=== PATIENT | female | born 1990 | race Caucasian/White ===

== ENCOUNTER 2023-07-26 21:39 | Outpatient (REF) | payer SELFPAY ==
[2023-07-30 17:10] LABS: Age Gdln ACOG Testing Note (.); HPV Aptima Negative (Negative); IGP, Aptima HPV, rfx 16/18,45 Note (.)
== END 2023-07-26 21:40 | disposition home or self-care (01) ==
LOC: LAB 21:39
PROVIDERS: Visit Provider Obstetrics & Gynecology
DX: Z01.419 Encounter for gynecological examination (general) (routine) without abnormal findings (principal)
CPT/HCPCS: 87624; G0145

== ENCOUNTER 2024-06-28 11:08 | Outpatient (OUT) | payer BC, SELFPAY ==
[2024-06-29 05:12] LABS: HIV Ab/p24 Ag Screen Non Reactive (Non Reactive)
[2024-06-29 06:07] LABS: HBsAg Screen Negative (Negative)
[2024-06-29 11:10] LABS: Rapid Plasma Reagin, Quant Non Reactive titer (NonRea<1:1)
[2024-07-03 23:09] LABS: HSV-1 DNA Negative (Negative); HSV-2 DNA Negative (Negative)
== END 2024-06-28 11:09 | disposition home or self-care (01) ==
LOC: LAB 11:09
PROVIDERS: PCP Family Medicine; Visit Provider Nurse Practitioner Family
DX: Z20.2 Contact with and (suspected) exposure to infections with a predominantly sexual mode of transmission (principal)
CPT/HCPCS: 36415; 86592; 87340; 87389; 87529

== ENCOUNTER 2024-08-02 20:11 | Outpatient (REF) | payer BC, SELFPAY ==
--- OUTSIDE RECORDS SUMMARY | 2024-08-02 15:00 | XMS_ITS | Encounter Summary ---
Author Organization [facility] Address [address] [place] [address] Care Team Providers Care Early Childhood Education Coordinator Name Role Phone Rubina Varela MD Primary Care Provider [phone] Lizzeth Nicolas NP Unavailable [phone] Tiffany Brito-S Unavailable [phone] Reason for Visit * Reason Comments Well Women Visit Encounter Details Date Type Department Care Team (Late st Contact Info) Description 08/02/2024 3:00 PM EDT Office Visit [facility] [address] [place] [address] Maximino Chandler DO [address] [place], [id number] Well woman exam with routine gynecological exam Social History Tobacco Use Types Packs/Day Years Used Date Smoking Tobacco: Never Smokeless Tobacco: Never Alcohol Use Standard Drinks/Week Comments Yes 1 (1 standard drink = 0.6 oz pur e alcohol) caffeine: soda 2x a week Comments No Sex and Gender Information Value Date Recorded Sex Assigned at Female 09/20/2022 9:33 AM EDT Legal Sex Female 8:15 PM EDT Gender Identity Female 09/20/2022 9:33 AM EDT Sexual Orientation Straight 09/20/2022 9: 33 AM EDT documented as of this encounter Last Filed Vital Signs Vital Sign Reading Time Taken Comments Blood Pressure 114/68 08/02/2024 3:22 PM EDT Pulse - - Temperature - - Respiratory Rate - - Oxygen Saturation - - Inhaled Oxygen Concentration - - Weight 110 kg (242 lb 1.9 oz) 08/02/2024 3:22 PM EDT Height - - Body Mass Index 36.81 07/05/2024 7:59 AM EDT documented in this encounter Progress Notes * BECKI Jordan - 08/02/2024 3:00 PM EDT Reason for Appointment: Patient ID: Kandis Ambriz is a 34 y.o. female who presents for Well Women Visit Patient presents today for Annual Exam. MEDICATIONS Current Outpatient Medications Medication Instructions Kay 0.25-35 MG-MCG tablet 1 tablet, Oral, Daily sertraline (ZOLOFT) 100 mg, Oral, Daily ALLERGIES Allergies Allergen Reactions Azithromycin Other Reaction(s): Abdominal Pain, GI disturbance N/V, and diarrhea PROBLEMS Active Ambulatory Problems Diagnosis Date Noted Amenorrhea 07/05/2024 Anxiety disorder 07/05/2024 Current severe episode of major depressive disorder without psychotic features without prior episode ([facility]) 07/05/2024 Depressive disorder ([facility]) 07/05/2024 GBS bacteriuria 10/21/2020 Hyperinsulinemia 07/05/2024 Irregular periods 07/05/2024 Obesity (BMI 30.0-34.9) 07/05/2024 Stress at home 07/05/2024 Resolved Ambulatory Problems Diagnosis Date Noted No Resolved Ambulatory Problems Past Medical History: Diagnosis Date GERD (gastroesophageal reflux disease) IBS (irritable bowel syndrome) HISTORY PAST MEDICAL HISTORY SOCIAL HISTORY Past Medical History: Diagnosis Date GERD (gastroesophageal reflux disease) IBS (irritable bowel syndrome) Social History Tobacco Use Smoking status: Never Smokeless tobacco: Never Vaping Use Vaping status: Never Used Substance Use Topics Alcohol use: Yes Alcohol/week: 1.0 - 2.0 standard drink of alcohol Types: 1 - 2 Standard drinks or equivalent per week Comment: caffeine: soda 2x a week Drug use: Never FAMILY HISTORY Family History Problem Relation Name Age of Onset Hypertension Mother Yokasta Kidney failure Father Eleuterio Diabetes Father Eleuterio Hypertension Father Eleuterio Heart failure Father Eleuterio Hypertension Paternal Grandmother So Diabetes Paternal Grandmother So Drug abuse Neg Hx Alcohol abuse Neg Hx Mental illness Neg Hx SURGICAL HISTORY Past Surgical History: Procedure Laterality Date ABDOMINAL SURGERY February 2021 CT ANGIOGRAM HEART CORONARY 02/15/2021 CT ANGIOGRAM TAVR 02/15/2021 GALLBLADDER SURGERY 02/2021 MYRINGOTOMY REVIEW OF SYSTEMS Review of Systems: Review of Systems Constitutional: Negative. HENT: Negative. Eyes: Negative. Respiratory: Negative. Cardiovascular: Negative. Gastrointestinal: Negative. Genitourinary: Negative. Musculoskeletal: Negative. Skin: Negative. Neurological: Negative. All other systems reviewed and are negative. Hematological: Negative. Endocrine: Negative. Allergic/Immunologic: Negative. OBJECTIVE Objective: Physical Exam Constitutional: Appearance: Normal appearance. Genitourinary: Genitourinary Comments: Bilat nipple piercing Right Adnexa: not tender and no mass present. Left Adnexa: not tender and no mass present. No cervical discharge. Breasts: Breasts are soft. Right: Normal. Left: Normal. HENT: Head: Normocephalic. Nose: Nose normal. Mouth/Throat: Mouth: Mucous membranes are moist. Cardiovascular: Rate and Rhythm: Normal rate. Pulmonary: Effort: Pulmonary effort is normal. Abdominal: General: Bowel sounds are normal. Palpations: Abdomen is soft. Musculoskeletal: General: Normal range of motion. Cervical back: Normal range of motion. Neurological: General: No focal deficit present. Mental Status: She is alert. Skin: General: Skin is warm and dry. Psychiatric: Mood and Affect: Mood normal. Vitals and nursing note reviewed. Exam conducted with a educational administration teacher present. Vitals: Estimated body mass index is 36.81 kg/m?? as calculated from the following: Height as of 07/05/24: 5' 8 . Weight as of this encounter: 242 lb 1.9 oz. BP: 114/68 Patient's last menstrual period was 07/27/2024. ASSESSMENT & PLAN ICD-10-CM 1. Well woman exam with routine gynecological exam Z01.419 Pap Smear HPV DNA probe, amplified POCT urinalysis dipstick manually resulted Annual Exam: Patient presents today for an annual exam. Patient states she is doing well and has no complaints. Pap was obtained without difficulty. Orders Placed This Encounter Procedures HPV DNA probe, amplified POCT urinalysis dipstick manually resulted Follow Up: Patient is to return in one year for annual unless needed otherwise. Documented by BECKI Jordan on behalf of: Maximino Chandler DO documented in this encounter Plan of Treatment Upcoming Encounters Date Type Department Care Team (Late st Contact Info) Description 08/15/2024 4:00 PM EDT Social Work [facility] [address] [place] [address] Tiffany Brito [facility] [address] [place] [address] 09/12/2024 4:00 PM EDT Social Work [facility] [address] [place] [address] Tiffany Brito [facility] [address] [place] [address] 08/13/2025 4:00 PM EDT Office Visit [facility] [address] [place] [phone] Maximino Chandler, DO [address] [facility] [address] [place] [address] Scheduled Orders Name Type Priority Associated Diagnoses Orde r Schedule Pap Smear Pathology and Cytology Routine Well woman exam with routine gynecological exam Ordered: 08/02/2024 HPV DNA probe, amplified Microbiology Routine Well woman exam with routine gynecological exam Ordered: 08/02/2024 documented as of this encounter Procedures Procedure Name Priority Date/Time Associated Diagnosis Comments POCT URINALYSIS DIPSTICK Routine 08/02/2024 3:25 PM EDT Well woman exam with routine gynecological exam documented in this encounter Results * (ABNORMAL) POCT urinalysis dipstick manually resulted (08/02/2024 3:25 PM EDT) Color, UA Yellow Clarity, UA Clear Glucose, UA Negative Negative - 2000(110) ++++ mg/dL Bilirubin, UA Negative Negative - 4(70) +++ mg/dL Ketones, UA Negative Negative - 160(16) ++++ mg/dL Spec Grav, UA 1.015 1 - 1.03 Blood, UA Negative Negative - 50 Luther/mcL pH, UA 7.5 5 - 9 Protein, UA Negative Negative - 2000(20) ++++ mg/dL Urobilinogen, UA 0.2 0.2 - 12 mg/dL Leukocytes, UA Trace Negative - 500+++ Arabella/mcL Nitrite, UA Negative Negative - Positive Urine 08/02/2024 3:25 PM EDT us Maximino Geraldine DO POINT OF CARE TEST ENTER/EDIT OR DERABLES Final Result documented in this encounter Visit Diagnoses Diagnosis Well woman exam with routine gynecological exam Routine gynecological examination documented in this encounter Care Teams Early Childhood Education Coordinator Relationship Specialty Start Date End Date Rubina Varela MD [address] [place] [address] PCP - General Family Medicine 07/22/22 Lizzeth Nicolas NP [address] [place] [address] Nurse Practitioner Family Medicine 07/22/22 Tiffany Brito [facility] [address] [address] Advertising Sales Manager Behavioral Health 03/15/24 documented as of this encounter
--- OUTSIDE RECORDS SUMMARY | 2024-08-02 20:14 | XMS_ITS | Encounter Summary ---
Author Organization [facility] Address [address] [place] [address] Care Team Providers Care Pot Room Supervisor Name Role Phone Rubina Varela MD Primary Care Provider [phone] Lizzeth Nicolas NP Unavailable [phone] Tiffany Brito-S Unavailable Encounter Details Date Type Department Care Team (Late Contact Info) Description 08/02/2024 Bamboo flowsheet [facility] [address] [place] [phone] Maximino Chandler, DO [address] [place], [place] [id number] Social History Tobacco Use Types Packs/Day Years [...] AM EDT documented as of this encounter Plan of Treatment Upcoming Encounters Date Type Department Care Team (Late Contact Info) Description 08/15/2024 4:00 PM EDT Social Work [facility] [address] [facility] [address] [place] [phone] Tiffany Brito [facility] [address] [place] [address] 09/12/2024 4:00 PM EDT Social Work [facility] [address] [place] [address] Tiffany Brito [facility] [address] [place] [address] 08/13/2025 4:00 PM EDT Office Visit [facility] [address] [place] [phone] Maximino Chandler DO [address] [facility] [place] [address] documented as of this encounter Visit Diagnoses Not on filedocumented in this encounter Care Teams Pot Room Supervisor Relationship Specialty Start Date End Date Rubina Varela MD [address] [facility], [place] [id number] PCP - General Family Medicine 07/22/22 Lizzeth Nicolas NP [address] [facility] [place], [place] [id number] Nurse Practitioner Family Medicine 07/22/22 Tiffany Brito [facility] [address] [place] [address] Drill Foreman Behavioral Health 03/15/24 documented as of this encounter
--- OUTSIDE RECORDS SUMMARY | 2024-08-02 20:14 | XMS_ITS | Clinical Summary ---
Author Organization [facility] Address [address] [place] [address] Care Team Providers Care Forensic Social Worker Name Role Phone Rubina Varela MD Primary Care Provider [phone] Lizzeth Nicolas NP Unavailable [phone] Tiffany Brito-S Unavailable [phone] Allergies Active Allergy Reactions Criticality Noted Date Comments Azithromycin Medium 08/12/2018 Other Reaction(s): Abdominal Pain, GI disturbance N/V, and diarrhea Medications sertraline (Zoloft) 100 MG tabletIndicati ons:Follow-up encounter involving medication Take 1 tablet (100 mg) by mouth Daily 30 tablet 11 5 03/27/19 26 Active Kay 0.25-35 MG-MCG tabletIndicati ons: control counseling TAKE 1 TABLET BY MOUTH EVERY DAY 84 tablet 3 5 Active norgestimate-e thinyl estradiol (Ortho-Cyclen) 0.25-35 MG-MCG tabletIndicati ons: control counseling Take 1 tablet by mouth Daily 28 tablet 12 4 07/19/19 25 Discontinued metroNIDAZOLE (Flagyl) 500 MG tabletIndicati ons:BV (bacterial vaginosis) Take 1 tablet (500 mg) by mouth in the morning and 1 tablet (500 mg) before bedtime. Do all this for 7 days. Do not drink alcohol while taking this medication. 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 W/PCN in labor Encounters Date Type Department Care Team Description 08/02/2024 3:00 PM EDT Office Visit [facility] [address] [facility] [place] [address] Maximino Chandler, Well woman exam with routine gynecological exam 08/02/2024 Bamboo flowsheet [facility] [address] [facility] [address] Maximino Chandler DO 07/18/2024 4:00 PM EDT Social Work [facility] [address] [place] [address] Tiffany Brito LISW-S Anxiety 07/18/2024 Bamboo flowsheet [facility] [address] [place] [address] Tiffany Brito LISW-S 07/18/2024 Travel 07/16/2024 Refill [facility] OB [address] [place] [phone] Maximino Chandler DO control counseling 07/05/2024 8:10 AM EDT Office Visit [facility] [address] [place] [phone] Odilia Good MD Chronic tonsillitis (Primary Dx) 07/05/2024 Bamboo flowsheet [facility] [address] [place] [phone] Odilia Good MD 07/05/2024 Travel 06/30/2024 Results Follow-Up [facility] [address] [place] [address] Peytonlincoln Sierra, BANANA LOADER 06/29/20[address] [facility] [address] [place] [address] Peytonlincoln Sierra, BANANA LOADER 06/28/2024 10:00 AM EDT Office Visit [facility] [address] [place] [address] Jackie French NP Exposure to STD; Vaginal discharge; Sexually transmitted disease exposure 06/28/2024 Clinisync Result Encounter [facility] External Department Unsolicited Provider, Generic External Data 06/28/2024 Bamboo flowsheet [facility] [address] [place] [address] Jackie French NP 06/21/[address] [facility] [address] [place] [address] Maximino Chandler DO 06/14/2024 4:00 PM EDT Social Work [facility] [address] [place] [address] Tiffany Brito LISW-S Anxiety 06/14/2024 Bamboo flowsheet [facility] [address] [place] [address] Tiffany Brito LISW-S 06/14/2024 Travel 06/13/2024 Bamboo flowsheet [facility] [address] [place] [phone] Odilia Good MD 06/13/2024 Travel 05/29/2024 4:00 PM EDT Office Visit [facility] [address] [facility] [address] Sully Neumann, LOUANN Sore throat (Primary Dx); Strep throat 05/29/2024 Bamboo flowsheet [facility] [address] [place] [facility] [place] [address] Sully Neumann NP 05/29/2024 Travel 05/26/2024 Telephone [facility] [address] [place] [phone] Monika Souza MA 05/25/2024 2:00 PM EDT Office Visit [facility] [address] [place] [address] Delia Chapman PA Vaginal discharge; STD exposure 05/25/2024 External Result Encounter [facility] External Department Unsolicited Delia Chapman PA 05/25/2024 Bamboo flowsheet [facility] [address] [place] [phone] Delia Chapman PA 05/17/2024 4:00 PM EDT Social Work [facility] [address] [place] [address] Tiffany Brito LISW-S Anxiety 05/17/2024 Bamboo flowsheet [facility] [address] [place] [address] iTffany Brtio LISW-S 05/17/2024 Travel 05/08/[address] [facility] [address] [place] [phone] Maximino Chandler DO from Last 3 Months Family History Medical History Relation Name Comments Diabetes Father Eleuterio Heart failure Father Eleuterio Hypertension Father Eleuterio Kidney failure Father Eleuterio Hypertension Mother Yokasta Diabetes Paternal Grandmother Granny Hypertension Paternal Grandmother Granny Alcohol abuse Neg Hx Drug abuse Neg Hx Mental illness Neg Hx Relation Name Status Comments Father Eleuterio Alive Mother Yokasta Alive Paternal Grandmother Granny Social History Tobacco Use Types Packs/Day Years Used Date Smoking Tobacco: Never Smokeless Tobacco: Never Tobacco Cessation:Counseling Given: Not Answered Alcohol Use Standard Drinks/Week Comments Yes 1 (1 standard drink = 0.6 oz pur e alcohol) caffeine: soda 2x a week Comments No Sex and Gender Information Value Date Recorded Sex Assigned at Female 09/20/2022 9:33 AM EDT Legal Sex Female 8:15 PM EDT Gender Identity Female 09/20/2022 9:33 AM EDT Sexual Orientation Straight 09/20/2022 9: 33 AM EDT Last Filed Vital Signs Vital Sign Reading Time Taken Comments Blood Pressure 114/68 08/02/2024 3:22 PM EDT Pulse 82 07/05/2024 7:59 AM EDT Temperature 37.8 C (100.1 F) 05/29/2024 3:57 PM EDT Respiratory Rate - - Oxygen Saturation 96% 05/29/2024 3:57 PM EDT Inhaled Oxygen Concentration - - Weight 110 kg (242 lb 1.9 oz) 08/02/2024 3:22 PM EDT Height 172.7 cm (5' 8 ) 07/05/2024 7:59 AM EDT Body Mass Index 36.81 07/05/2024 7:59 AM EDT Plan of Treatment Upcoming Encounters Date Type Department Care Team (Late st Contact Info) Description 08/15/2024 4:00 PM EDT Social Work [facility] [address] [place] [address] Tiffany Brito LISW-S [address] [place] [address] 09/12/2024 4:00 PM EDT Social Work [facility] [address] [place] [address] Tiffany Brito LISW-S [address] [place] [address] 08/13/2025 4:00 PM EDT Office Visit [facility] OB [address] [facility] [place] [address] [place] [phone] Maximino Chandler, [address] [facility] [place] [address] Health Maintenance Due Date Last Done Comments HPV/Cotest 05/12/2021 Influenza Vaccine (Season Ended) 2024 01/14/2022, 12/04/2020, 12/22/2018 Cervical Cancer Screening 07/25/2026 Pap Smear 07/25/2026 07/26/2023, 07/20/2022 Procedures Procedure Name Priority Date/Time Associated Diagnosis Comments POCT URINALYSIS DIPSTICK Routine 08/02/2024 3:25 PM EDT Well woman exam with routine gynecological exam [facility] HERPES SIMPLEX VIRUS 1/2 DNA PCR Routine 06/28/2024 11:17 AM EDT HBSAG SCREEN Routine 06/28/2024 11:17 AM EDT RAPID PLASMA REAGIN, QUANT Routine 06/28/2024 11:17 AM EDT HIV AB/P24 AG WITH REFLEX Routine 06/28/2024 11:17 AM EDT RECURRENT VAGINITIS (HTRX) Routine 06/28/2024 10:45 AM EDT POCT URINALYSIS DIPSTICK Routine 06/28/2024 10:13 AM EDT Exposure to STD Vaginal discharge POCT , URINE Routine 06/28/2024 10:13 AM EDT Exposure to STD Vaginal discharge POCT RAPID STREP A Routine 05/29/2024 4: 12 PM EDT Sore throat STATUS COVID-19/FLU Routine 05/29/2024 4 :11 PM EDT Sore throat RECURRENT VAGINITIS (HTRX) Routine 05/25/2024 4:08 PM EDT PAP SMEAR Routine 07/26/2023 12:00 AM EDT from Last 3 Months or Most Recently Relevant to Health Maintenance Results * (ABNORMAL) POCT urinalysis dipstick manually resulted (08/02/2024 3:25 PM EDT) Only the most recent of2 resultswithin the time period is included. [facility] Color, UA Yellow Clarity, UA Clear Glucose, [...] - Positive Urine 08/02/2024 3:25 PM EDT Maximino Chandler DO POINT OF CARE TEST ENTER/EDIT OR DERABLES Final Result * HBSAG SCREEN (06/28/2024 11:17 AM EDT) [facility] HBSAG SCREEN Negative Negative [facility] Comment: Performed at: [facility] [address] [id number] Forensic Social Worker: Sen Moe PhD, Phone: [phone] 06/28/2024 11:1 7 AM EDT 06/28/2024 11:17 AM EDT Narrative MAVERICKISYNC - 06/29/2024 11:10 AM EDT Jackie French NP LAB BLOOD ORDERABLES Final Re sult [facility] * RAPID PLASMA REAGIN, QUANT (06/28/2024 11:17 AM EDT) [facility] RAPID PLASMA REAGIN, QUANT Non Reactive NonRea<1: 1 titer [facility] Comment: Please Note: This test does not meet current guidelines for screening and diagnosis of syphilis. This test is intended for following treatment response in patients being treated for syphilis infection. To screen for syphilis infection, a reflex cascade that includes both RPR and a treponema-specific assay should be utilized, such as Treponema pallidum (Syphilis) Screening [place] (917019) or Rapid Plasma Reagin (RPR) Test With Reflex to Quantitative RPR and Confirmatory Treponema pallidum Antibodies (375052). Performed at: [address] [id number] Forensic Social Worker: Sen Moe PhD, Phone: [phone] 06/28/2024 11:1 7 AM EDT 06/28/2024 11:17 AM EDT Narrative CLINISYMI - 06/29/2024 11:10 AM EDT Jackie French NP LAB BLOOD ORDERABLES Final Re sult Performing Organization Address [facility] Co de Phone Number [facility] * HIV AB/P24 AG WITH REFLEX (06/28/2024 11:17 AM EDT) Pathologist [facility] HIV AB/P24 AG SCREEN Non Reactive Non Reactive [facility] Comment: HIV-1/HIV-2 antibodies and HIV-1 p24 antigen were NOT detected. There is no laboratory evidence of HIV infection. HIV Negative Performed at: [address] [id number] Forensic Social Worker: Sen Moe PhD, Phone: [phone] 06/28/2024 11:1 7 AM EDT 06/28/2024 11:17 AM EDT Narrative CLINISYMI - 06/29/2024 5:12 AM EDT Jackie French NP LAB BLOOD ORDERABLES Final Re sult Performing Organization Address City/[facility] Co de Phone Number [facility] * TB HERPES SIMPLEX VIRUS 1/2 DNA PCR (06/28/2024 11:17 AM EDT) Pathologist [facility] [place] HSV-1 DNA Negative Negative [facility] HSV-2 DNA Negative Negative [facility] Comment: This test was developed and its performance characteristics determined by [employer]. It has not been cleared or approved by the U.S. Food and Drug Administration. The FDA has determined that such clearance or approval is not necessary. This test is used for clinical purposes. It should not be regarded as investigational or research. Performed at: [address] [id number] Forensic Social Worker: Shazia Patricia MD, Phone: [phone] 06/28/2024 11:1 7 AM EDT 06/28/2024 11:17 AM EDT Narrative CLINISYNC - 07/03/2024 11:09 PM EDT Jackie French NP CLINISYNC Final Result [facility]NC [facility] * (ABNORMAL) RECURRENT VAGINITIS (HTRX) (06/28/2024 10:45 AM EDT) Only the most recent of2 resultswithin the time period is included. ATOPOBIUM VAGINAE 0.000 19.961 - 24.689 ppm 06/29/2024 8:03 AM EDT [facility] ATOPOBIUM VAGINAE Not Detected 19.961 - 24.689 ppm 06/29/2024 8:03 AM EDT [facility] BVAB 2,3 (BACTERIAL VAGINOSIS ASSOCIATED BACTERIA 2, 3); MOBILUNCUS SPP 26.791(A) 19.961 - 24.689 ppm 06/29/2024 8:03 AM EDT [facility] BVAB 2,3 (BACTERIAL VAGINOSIS ASSOCIATED BACTERIA 2, 3); MOBILUNCUS SPP Detected(A) 19.961 - 24.689 ppm 06/29/2024 8:03 AM EDT [facility] MARINA ALBICANS, PARAPSILOSIS, TROPICALIS 0.000 19.961 - 30.770 ppm 06/29/2024 8:03 AM EDT [facility] MARINA ALBICANS, PARAPSILOSIS, TROPICALIS Not Detected 19.961 - 30.770 ppm 06/29/2024 8:03 AM EDT [facility] MARINA GLABRATA 0.000 23.000 - 32.138 ppm 06/29/2024 8:03 AM EDT [facility] MARINA GLABRATA Not Detected 23.000 - 32.138 ppm 06/29/2024 8:03 AM EDT [facility] MARINA KRUSEI 0.000 23.000 - 32.271 ppm 06/29/2024 8:03 AM EDT [facility] MARINA KRUSEI Not Detected 23.000 - 32.271 ppm 06/29/2024 8:03 AM EDT [facility] CHLAMYDIA TRACHOMATIS 0.000 23.000 - 31.467 ppm 06/29/2024 8:03 AM EDT [facility] CHLAMYDIA TRACHOMATIS Not Detected 23.000 - 31.467 ppm 06/29/2024 8:03 AM EDT [facility] GARDNERELLA VAGINALIS 0.000 19.961 - 24.689 ppm 06/29/2024 8:03 AM EDT [facility] GARDNERELLA VAGINALIS Not Detected 19.961 - 24.689 ppm 06/29/2024 8:03 AM EDT [facility] HERPES SIMPLEX VIRUS 1 0.000 23.000 - 32.355 ppm 06/29/2024 8:03 AM EDT [facility] HERPES SIMPLEX VIRUS 1 Not Detected 23.000 - 32.355 ppm 06/29/2024 8:03 AM EDT [facility] HERPES SIMPLEX VIRUS 2 0.000 23.000 - 31.433 ppm 06/29/2024 8:03 AM EDT [facility] HERPES SIMPLEX VIRUS 2 Not Detected 23.000 - 31.433 ppm 06/29/2024 8:03 AM EDT [facility] MEGASPHAERA (TYPES 1, 2) 0.000 19.961 - 24.689 ppm 06/29/2024 8:03 AM EDT [facility] MEGASPHAERA (TYPES 1, 2) Not Detected 19.961 - 24.689 ppm 06/29/2024 8:03 AM EDT [facility] NEISSERIA GONORRHOEAE 0.000 23.000 - 32.117 ppm 06/29/2024 8:03 AM EDT [facility] NEISSERIA GONORRHOEAE Not Detected 23.000 - 32.117 ppm 06/29/2024 8:03 AM EDT [facility] TRICHOMONAS VAGINALIS 0.000 23.000 - 32.119 ppm 06/29/2024 8:03 AM EDT [facility] TRICHOMONAS VAGINALIS Not Detected 23.000 - 32.119 ppm 06/29/2024 8:03 AM EDT [facility] MYCOPLASMA GENITALIUM 0.000 19.961 - 24.689 ppm 06/29/2024 8:03 AM EDT [facility] MYCOPLASMA GENITALIUM Not Detected 19.961 - 24.689 ppm 06/29/2024 8:03 AM EDT [facility] Tissue 06/28/2024 10:4 5 AM EDT 06/29/2024 1:54 AM EDT Maximino Chandler DO LAB BLOOD ORDERABLES Final Resul t [facility] [address] [place] [address] * POCT , urine manually resulted (06/28/2024 10:13 AM EDT) Preg Test, Ur Negative Negative Urine 06/28/2024 10:1 3 AM EDT Jackie French HOUSEKEEPER POINT OF CARE TEST ENTER/EDIT ORDERABLES Final Result * (ABNORMAL) POCT rapid strep A manually resulted (05/29/2024 4:12 PM EDT) Rapid Strep A Screen Positive( A) Negative, None Detected Swab 05/29/2024 4:12 PM EDT Sully Neumann HOUSEKEEPER POINT OF CARE TEST ENTE R/EDIT ORDERABLES Final Result * STATUS COVID-19/FLU (05/29/2024 4:11 PM EDT) FLU A negative FLU B negative SARS COV 2 RNA negative Nasopharyngeal 05/29/2024 4: 11 PM EDT Sully Neumann HOUSEKEEPER POINT OF CARE TEST ENTE R/EDIT ORDERABLES Final Result * Pap Smear (07/26/2023 12:00 AM EDT) Swab Cervical swab / Unknown us Maximino Chandler DO LAB CYTOLOGY ORDERABLES Final Re sult EXTERNAL LAB from Last 3 Months or Most Recently Relevant to Health Maintenance Insurance [facility] Care Teams Forensic Social Worker Relationship Specialty Start Date End Date Rubina Varela MD [address] [facility] [place], [place] [phone] PCP - General Family Medicine 07/22/22 Lizzeth Nicolas NP [address] [facility] [place], [place] [phone] Nurse Practitioner Family Medicine 07/22/22 Tiffany Brito LISW-S [address] [place] [address] Professor Of Archaeology Behavioral Health 03/15/24
--- OUTSIDE RECORDS SUMMARY | 2024-08-02 20:14 | XMS_ITS | Encounter Summary ---
Author Organization [facility] Address [address] [place] [address] Care Team Providers Care Blanket Inspector Name Role Phone Rubina Varela MD Primary Care Provider [phone] Lizzeth Nicolas NP Unavailable [phone] Tiffany Brito-S Unavailable [phone] Encounter Details Date Type Department Care Team (Late st Contact Info) Description 06/30/2024 Results Follow-Up [facility] OB [address] [facility] [place] [address] Sierra Ashby LPN [address] [place] [address] Social History Tobacco Use Types Packs/Day Years [...] AM EDT documented as of this encounter Miscellaneous Notes * Result Encounter Note - Sierra Ashby LPN - 06/30/2024 10:04 AM EDT Pt notified and treated. documented in this encounter Plan of Treatment Upcoming Encounters Date Type Department Care Team (Late st Contact Info) Description 08/15/2024 4:00 PM EDT Social Work [facility] [address] [place] [phone] Tiffany Brito LISW-S [address] [place] [address] 09/12/2024 4:00 PM EDT Social Work [facility] [address] [place] [address] Tiffany Brito LISW-S [address] [place] [address] 08/13/2025 4:00 PM EDT Office Visit [facility] OB [address] [place] [phone] Maximino Chandler, DO [address] [place] [address] documented as of this encounter Visit Diagnoses Not on filedocumented in this encounter Care Teams Blanket Inspector Relationship Specialty Start Date End Date Rubina Varela MD [address] [facility] [place] [address] PCP - General Family Medicine 07/22/22 Lizzeth Nicolas NP [address] [facility] [place], [place] [phone] Nurse Practitioner Family Medicine 07/22/22 Tiffany Brito LISW-S [address] [place] [address] Conditioning Coach Behavioral Health 03/15/24 documented as of this encounter
--- OUTSIDE RECORDS SUMMARY | 2024-08-02 20:14 | XMS_ITS | Encounter Summary ---
Author Organization [facility] Address [address] [place] [address] Care Team Providers Care Assisted Living Nursing Director Name Role Phone Rubina Varela MD Primary Care Provider Lizzeth Nicolas NP Unavailable [phone] Tiffany Brito Unavailable [phone] Encounter Details Date Type Department Care Team (Late Contact Info) Description 10/07/2022 Abstract [facility] [address] [facility] [address] [place] [address] Tiffany Brito LISW-S [address] [facility] [address] [place] [address] Social History Tobacco Use Types Packs/Day Years Used Date Smoking Tobacco: Never Tobacco Cessation:Counseling Given: Not Answered Alcohol Use Standard Drinks/Week Comments Yes 1 (1 standard drink = 0.6 oz pur e alcohol) caffeine: soda 2x a week Comments Unknown Sex and Gender Information Value Date Recorded Sex Assigned at Female 09/20/2022 9:33 AM EDT Legal Sex Female 8:15 PM EDT Gender Identity Female 09/20/2022 9:33 AM EDT Sexual Orientation Straight 09/20/2022 9: 33 AM EDT documented as of this encounter Plan of Treatment Upcoming Encounters Date Type Department Care Team ([facility] Contact Info) Description 08/15/2024 4:00 PM EDT Social Work [facility] [address] [facility] [address] [place] [phone] Tiffany Brito LISW-S [address] [place] [address] 09/12/2024 4:00 PM EDT Social Work [facility] [address] [place] [address] Tiffany Brito LISW-S [address] [place] [address] 08/13/2025 4:00 PM EDT Office Visit [facility] OB [address] [place] [address] Maximino Chandler DO [address] [place] [address] documented as of this encounter Visit Diagnoses Not on filedocumented in this encounter Care Teams Assisted Living Nursing Director Relationship Specialty Start Date End Date Rubina Varela MD [address] [place], [place] [phone] PCP - General Family Medicine 07/22/22 Lizzeth Nicolas NP [address] [facility], [place] [phone] Nurse Practitioner Family Medicine 07/22/22 Tiffany Brito LISW-S [address] [place] [address] Airplane Engineer Behavioral Health 03/15/24 documented as of this encounter
--- OUTSIDE RECORDS SUMMARY | 2024-08-02 20:15 | XMS_ITS | CCD ---
Author Organization [facility] Care Team Providers Care High Reach Operator Name Role Phone Leyda Hendrickson Unavailable ALEJANDRA CABRERA Primary Care Unavailable GERALDINE ., DR VERDUGO Attending Unavailable GERALDINE ., DR VERDUGO Consulting Unavailable GERALDINE ., DR VERDUGO Admitting Unavailable Nichole GOODE, Rubina Primary Care Provider Maria Isabel COMMUNITY SERVICE REPRESENTATIVE, Lizzeth Unavailable Tiffany Witt Unavailable Mariluz Emery APRN Attending Provider Mariluz Emery Admitting Unavailable Mariluz Emery Attending Unavailable NO FAMILY, PHYSICIAN Primary Care Unavailable DidTiffany Malin Unavailable [phone] TIFFANY HAYDEN Attending Unavailable DIDION, TIFFANY Attending Unavailable DIDION, TIFFANY Attending Unavailable DELIA LUI Attending Unavailable ALFONSO NEUMANN Attending Unavailab le TIFFANY HAYDEN Attending Unavailable KARTIK CHANDLER Attending Unavailable DIDION, TIFFANY Attending Unavailable DIDION, TIFFANY Attending Unavailable DIDION, TIFFANY Attending Unavailable DIDION, TIFFANY Attending Unavailable JACKIE FRENCH Attending Unavailable ODILIA DURBIN Attending Unavailable ALEJANDRA NEUMANNRICIA A Referring Unavailab le LENAIONTIFFANY Attending Unavailable DIDION, TIFFANY Attending Unavailable DIDION, TIFFANY Attending Unavailable DIDION, TIFFANY Attending Unavailable DIDION, TIFFANY Attending Unavailable DIDION, TIFFANY Attending Unavailable DIDION, TIFFANY Attending Unavailable Allergies Allergy Classification Reported Allergen(s) Allergy Type Date of Onset Reaction(s) Facility (20 sources) Azithromycin Drug Allergy 9 abdominal pain, nausea/diarrrhe a [facility] Work Phone: (1 source) Azithromycin Drug Allergy 3 [facility] Repository (1 source) Azithromycin Drug Allergy 5 [facility] Repository Medications Current Medications Medication Drug Class(es) Dates Sig (Normalized) Sig (Original) amoxicillin 500 mg oral capsule (5 sources) Penicillin-class Antibacterial Start: 05-29-2024 End: 06-08-2024 take 1 capsule by mouth in the morning amoxicillin (Amoxil) 500 MG capsule Indications: Strep throat Take 1 capsule (500 mg) by mouth in the morning and 1 capsule (500 mg) before bedtime. Do all this for 10 days. 20 capsule 05/29/2024 06/08/2024 Active Start: 12-08-2023 End: 05-03-2024 take 1 capsule by mouth twice daily Amoxicillin 500 mg capsule Discontinued 500 MG PO Twice daily 20 December 07, 2023 11:00pm May 03, 2024 6:31pm benzonatate 200 mg oral capsule (3 sources) Non-narcotic Antitussive Start: 12-08-2023 Benzonatate 200 mg capsule Active MG PO December 07, 2023 11:00pm Start: 12-08-2023 Benzonatate Ac tive MG PO December 08, 2023 12:00am doxycycline hyclate 100 mg oral capsule (2 sources) Tetracycline-class Drug Start: 05-03-2024 take 1 capsule by mouth twice daily Doxycycline Hyclate 100 mg capsule Active 100 MG PO Twice daily 14 7 May 03, 2024 12:00am ethinyl estradiol 0.035 mg / norgestimate 0.25 mg oral tablet (20 sources) Progestin, Estrogen Start: 12-08-2023 take 1 tablet by mouth once daily Norgestimate-Eth inyl Estradiol (Estarylla) 0.25-35 mg-mcg tablet Active 1 TAB PO Daily December 07, 2023 11:00pm Start: 12-08-2023 take 1 tablet by ernestina th once daily Norgestimate-Ethinyl Estradiol (Estarylla) 0.25-35 mg-mcg tablet Active 1 TAB PO Daily December 08, 2023 12:00am Start: 07-26-2023 End: 07-25-2024 take 1 tablet by mouth once daily Kay 0.25-35 MG-MCG tablet Indications: control counseling TAKE 1 TABLET BY MOUTH EVERY DAY 84 tablet 3 07/18/2024 Active Start: 04-12-2023 End: 08-02-2023 norgestimate-ethinyl estradi ol (Ortho-Cyclen) 0.25-35 MG-MCG tablet Indications: control counseling Take 1 tablet by mouth in the morning. 28 tablet 3 04/12/2023 08/02/2023 Active metroNIDAZOLE 500 mg oral tablet (3 sources) Nitroimidazole Antimicrobial Start: 06-29-2024 End: 07-06-2024 take 1 tablet by mouth in the morning metroNIDAZOLE (Flagyl) 500 MG tablet Indications: BV (bacterial vaginosis) Take 1 tablet (500 mg) by mouth in the morning and 1 tablet (500 mg) before bedtime. Do all this for 7 days. Do not drink alcohol while taking this medication. 14 tablet 06/29/2024 07/06/2024 Active 28-0.8 MG (1 source) Start: 01-05-2021 take 1 tablet by mouth once daily 28-0.8 MG 1 tablet Orally Once a day for 30 day(s) Dec, Active sertraline 100 mg oral tablet (20 sources) Serotonin Reuptake Inhibitor Start: 02-23-2023 End: 03-27-2025 take 1 tablet by mouth once daily sertraline (Zoloft) 100 MG tablet Indications: Follow-up encounter involving medication Take 1 tablet (100 mg) by mouth Daily 30 tablet 11 03/27/2024 03/27/2025 Active Completed/Discontinued Medications Medication Drug Class(es) Dates Sig (Normalized) Sig (Original) [id number] 200 actuat albuterol 0.09 mg/actuat metered dose inhaler (3 sources) beta2-Adrenergic Agonist Start: 12-08-2023 End: 05-03-2024 Albuterol Sulfate 90 mcg/actuation HFA aerosol inhaler Discontinued INHALATION December 07, 2023 11:00pm May 03, 2024 6:31pm aspirin 81 mg oral tablet (1 source) Platelet Aggregation Inhibitor, Nonsteroidal Anti-inflammatory Drug RA Aspirin EC 81 MG Oral for 30 Not-Taking Problems Active Problems Problem Classification Problem Date Documented Date Episodic/Chronic Acute and chronic tonsillitis (2 sources) Chronic tonsillitis; Translations: [Chronic tonsillitis] 07-05-2024 Chronic Adjustment disorders (7 sources) Family tension; Translations: [Reaction to severe stress, unspecified] Onset: 07-05-2024 07-05-2024 Chronic Anxiety disorders (20 sources) Anxiety; Translations: [Anxiety disorder, unspecified] Onset: 07-05-2024 12-08-2023 Chronic Immunizations and screening for infectious disease (11 sources) Contact with and (suspected) exposure to other viral communicable diseases; Translations: [At risk of sexually transmitted infection ] Onset: 01-05-2021 Resolved: 01-05-2021 Episodic Menstrual disorders (14 sources) Amenorrhea; Translations: [Amenorrhea, unspecified] Onset: 07-05-2024 07-05-2024 Chronic Mood disorders (17 sources) Depressive disorder; Translations: [Depression] Onset: 07-05-2024 12-08-2023 Chronic Other endocrine disorders (7 sources) Hyperinsulinism; Translations: [Other hypoglycemia] Onset: 07-05-2024 07-05-2024 Chronic Other female genital disorders (4 sources) Vaginal discharge; Translations: [Other specified noninflammatory disorders of vagina] 05-25-2024 Episodic Other nutritional; endocrine; and metabolic disorders (7 sources) Obese class I; Translations: [Obesity (BMI 30.0-34.9)] Onset: 07-05-2024 07-05-2024 Chronic Other upper respiratory infections (9 sources) Acute pharyngitis, unspecified; Translations: [Acute pharyngitis] 12-08-2023 Episodic Residual codes; unclassified (1 source) High risk heterosexual behavior; Translations: [High risk heterosexual behavior] Onset: 05-03-2024 Episodic Past or Other Problems Problem Classification Problem Date Documented Da te Episodic/Chronic Genitourinary symptoms and ill-defined conditions (7 sources) Bacteriuria; Translations: [Bacteriuria] Onset: 10-21-2020 07-05-2024 Episodic Viral infection (1 source) COVID-19 Onset: 01-05-2021 Resolved: 01-05-2021 Results Test Name Value Interpretation Reference Range Facility Urinalysis macro (dipstick) panel (U)on 08-02-2024 Bilirubin, UA Negative Negative - 4(70) +++ mg/dL [facility] Blood, UA Negative Negative - 50 Luther/mcL [facility] Healthcare Clarity, UA Clear [facility] Color, UA Yellow [facility] Glucose, UA Negative Negative - 1999(110) ++++ mg/dL [facility] Interpretation and review of laboratory results Abnormal [facility] Ketones, UA Negative Negative - 160(16) ++++ mg/dL [facility] Leukocytes, UA Trace Negative - 500+++ Arabella/mcL [facility] Nitrite, UA Negative Negative - Positive [facility] pH, UA 7.5 5 - 9 [facility] e Protein, UA Negative Negative - 1999(20) ++++ mg/dL [facility] Spec Grav, UA 1.015 1 - 1.03 [facility] Urobilinogen, UA 0.2 0.2 - 12 mg/dL [facility] HIV AB/P24 AG WITH REFLEXon 06-29-2024 HIV AB/P24 AG SCREEN Non-Reactive Non Reactive [facility] Comment on above: HIV-1/HIV-2 antibodi es and HIV-1 p24 antigen were NOT detected. There is no laboratory evidence of HIV infection. HIV Negative Performed at: - [facility] [id number] Compilation Clerk: Sen Moe PhD, Phone: [phone] [facility] HCG ( test) Ql (U)o n 06-28-2024 Interpretation and review of laboratory results Normal [facility] Preg Test, Ur Negative Negative [facility] Urinalysis macro (dipstick) panel (U)on 06-28-2024 Bilirubin, UA Negative Negative - 4(70) +++ mg/dL [facility] Blood, UA Negative Negative - 50 Luther/mcL [facility] Healthcare Clarity, UA Clear [facility] Color, UA Yellow [facility] Glucose, UA Negative Negative - 1999(110) ++++ mg/dL [facility] Interpretation and review of laboratory results Abnormal [facility] Ketones, UA Negative Negative - 160(16) ++++ mg/dL [facility] Leukocytes, UA Trace Negative - 500+++ Arabella/mcL [facility] Nitrite, UA Negative Negative - Positive [facility] pH, UA 6.5 5 - 9 [facility] Protein, UA Negative Negative - 1999(20) ++++ mg/dL [facility] Spec Grav, UA 1.025 1 - 1.03 [facility] care Urobilinogen, UA 0.2 0.2 - 12 mg/dL [facility] Laboratory - Microbiology an d Antimicrobial susceptibilityon 05-29-2024 S. pyogenes Ag Ql (Throat) Positive Abnormal Negative, None Detected [facility] SARS-CoV-2 (COVID-19) RNA PITO+probe Ql (Unsp spec) Negative [facility] No Panel Informationon 05-29 Interpretation and review of laboratory results Abnormal [facility] FLU A Negative [facility] FLU B Negative [facility] e Vaginitis Plus (VG+)on 05-03 Atopobium Vaginae Low - 0 Normal . The [facility] Comment on above: Result Comment: This test was developed and its performance characteristics determined by [facility]. It has not been cleared or approved by the Food and Drug Administration. Performed By: #### V AGINITIS+ #### [facility] , BVAB2 Low - 0 Normal . The [facility] Comment on above: Result Comment: This test was developed and its performance characteristics determined by [facility]. It has not been cleared or approved by the Food and Drug Administration. Performed By: #### V AGINITIS+ #### [facility] , Cookie Albicans, PITO Negative Normal Negative [facility] Comment on above: Result Comment: This test was developed and its performance characteristics determined by [facility]. It has not been cleared or approved by the Food and Drug Administration. Performed By: #### V AGINITIS+ #### [facility] , Cookie Glabrata, PITO Negative Normal Negative [facility] Comment on above: Result Comment: This test was developed and its performance characteristics determined by [facility]. It has not been cleared or approved by the Food and Drug Administration. PERFORMED BY: [address] [place] [address] PATHOLOGIST CHILD WELFARE SPECIALIST CONSTANCE ROMAN M.D. Performed By: #### V AGINITIS+ #### [facility] , Chlamydia Trachomotis, PITO Positive Critically abnormal Negative [facility] Comment on above: Performed By: #### V AGINITIS+ #### [facility] , Megasphaera Low - 0 Normal . [facility] Comment on above: Result Comment: This test was developed and its performance characteristics determined by [facility]. It has not been cleared or approved by the Food and Drug Administration. Calculate total score by adding the 3 individual bacterial vaginosis (BV) marker scores together. Total score is interpreted as follows: Total score 0-1: Indicates the absence of BV. Total score 2: Indeterminate for BV. Additional clinical data should be evaluated to establish a diagnosis. Total score 3-6: Indicates the presence of BV. Performed By: #### V AGINITIS+ #### [facility] , Neisseria Gonorrhoeae, PITO Negative Normal Negative [facility] Comment on above: Result Comment: Perf ormed at: =G - [facility] [address] [id number] Compilation Clerk: Estee Jimenez MD, Phone: [phone] Performed By: #### V AGINITIS+ #### [facility] , Tric Vag PITO Negative Normal Negative [facility] Comment on above: Performed By: #### V AGINITIS+ #### [facility] , No Panel InformationOrdered By: Mariluz Emery on 12-08-2023 Quick Strep (POC) [facility] Cytology Cervical or vaginal smear or scraping studyOrdered By: Charu Elizalde on 07-26-2023 [facility] Liqueo e COVID Quick Testingon 2020 Result Positive [employer] Other Vital Signs Date Time Vital Sign Value Performing Clinician Facility 08-02-2024 15:22-0400 Body mass index (BMI) [Ratio] 36.81 kg/m2 KartikTripnary DO Work Phone: [facility] 08-02-2024 15:22-0400 Body weight 109.83 kg Kartik Geraldine DO Work Phone: [facility] 08-02-2024 15:22-0400 Diastolic blood pressure 68 mm[Hg] Kartik Geraldine DO Work Phone: [facility] 08-02-2024 15:22-0400 Systolic blood pressure 114 mm[Hg] Kartik Geraldine DO Work Phone: [facility] 07-05-2024 07:59-0400 Body height 172.7 cm Odilia Durbin MD Work Phone: [facility] 07-05-2024 07:59-0400 Body mass index (BMI) [Ratio] 36.04 kg/m2 Odilia Durbin MD Work Phone: [facility] 07-05-2024 07:59-0400 Body weight 107.5 kg Odilia Durbin MD Work Phone: [facility] 07-05-2024 07:59-0400 Diastolic blood pressure 76 mm[Hg] Odilia Durbin MD Work Phone: [facility] 07-05-2024 07:59-0400 Heart rate 82 /min Odilia Durbin MD Work Phone: [facility] 07-05-2024 07:59-0400 Systolic blood pressure 107 mm[Hg] Odilia Durbin MD Work Phone: [facility] 06-28-2024 10:07-0400 Body mass index (BMI) [Ratio] 35.48 kg/m2 Jackie French COMMUNITY SERVICE REPRESENTATIVE Work Phone: [facility] 06-28-2024 10:07-0400 Body weight 107.41 kg Jackie French COMMUNITY SERVICE REPRESENTATIVE Work Phone: [facility] 06-28-2024 10:07-0400 Diastolic blood pressure 70 mm[Hg] Jackie French COMMUNITY SERVICE REPRESENTATIVE Work Phone: [facility] 06-28-2024 10:07-0400 Systolic blood pressure 110 mm[Hg] Jackie French COMMUNITY SERVICE REPRESENTATIVE Work Phone: [facility] 05-29-2024 15:57-0400 Body height 174 cm Alfonso Neumann COMMUNITY SERVICE REPRESENTATIVE Work Phone: [facility] 05-29-2024 15:57-0400 Body mass index (BMI) [Ratio] 35.6 kg/m2 Alfonso Neumann COMMUNITY SERVICE REPRESENTATIVE Work Phone: [facility] 05-29-2024 15:57-0400 Body temperature 100.09 [degF] Alfonso Neumann COMMUNITY SERVICE REPRESENTATIVE Work Phone: [facility] 05-29-2024 15:57-0400 Body weight 107.78 kg Alfonso Neumann COMMUNITY SERVICE REPRESENTATIVE Work Phone: [facility] 05-29-2024 15:57-0400 Diastolic blood pressure 80 mm[Hg] Alfonso Neumann COMMUNITY SERVICE REPRESENTATIVE Work Phone: [facility] 05-29-2024 15:57-0400 Heart rate 103 /min Alfonso Neumann COMMUNITY SERVICE REPRESENTATIVE Work Phone: [facility] 05-29-2024 15:57-0400 SaO2% (BldA) [Mass fraction] 96 % Alfonso Neumann COMMUNITY SERVICE REPRESENTATIVE Work Phone: [facility] 05-29-2024 15:57-0400 Systolic blood pressure 124 mm[Hg] Alfonso Neumann COMMUNITY SERVICE REPRESENTATIVE Work Phone: [facility] 05-25-2024 14:13-0400 Body mass index (BMI) [Ratio] 36.08 kg/m2 Delia CONNELL Work Phone: [facility] 05-25-2024 14:13-0400 Body weight 109.23 kg Delia CONNELL Work Phone: [facility] 05-25-2024 14:13-0400 Diastolic blood pressure 74 mm[Hg] Delia CONNELL Work Phone: [facility] 05-25-2024 14:13-0400 Systolic blood pressure 118 mm[Hg] Delia CONNELL Work Phone: [facility] 05-03-2024 18:31-0500 Body height 177.8 cm [facility] 05-03-2024 18:31-0500 Body mass index (BMI) [Ratio] 34 kg/m2 [facility] 05-03-2024 18:31-0500 Body temperature 97.8 [degF] [facility] 05-03-2024 18:31-0500 Body weight 107.72 kg [facility] 05-03-2024 18:31-0500 Diastolic blood pressure 80 mm[Hg] [facility] 05-03-2024 18:31-0500 Heart rate 75 /min [facility] 05-03-2024 18:31-0500 Respiratory rate 17 /min [facility] 05-03-2024 18:31-0500 SaO2% (BldA) [Mass fraction] 98 % [facility] 05-03-2024 18:31-0500 Systolic blood pressure 148 mm[Hg] [facility] 12-08-2023 11:45-0400 Body height 172.72 cm [facility] 12-08-2023 11:45-0400 Body mass index (BMI) [Ratio] 35.9 kg/m2 [facility] 12-08-2023 11:45-0400 Body temperature 97.8 [degF] [facility] 12-08-2023 11:45-0400 Body weight 107.04 kg [facility] 12-08-2023 11:45-0400 Diastolic blood pressure 74 mm[Hg] [facility] 12-08-2023 11:45-0400 Heart rate 89 /min [facility] 12-08-2023 11:45-0400 Respiratory rate 18 /min [facility] 12-08-2023 11:45-0400 SaO2% (BldA) [Mass fraction] 96 % [facility] 12-08-2023 11:45-0400 Systolic blood pressure 109 mm[Hg] [facility] 01-05-2021 12:00-0400 Body height 172.72 cm Leyda Hendrickson Other [facility] Other 01-05-2021 12:00-0400 Body mass index (BMI) [Ratio] 33.45 kg/m2 Leyda Hendrickson Other [employer] [facility] Other 01-05-2021 12:00-0400 Body temperature 98.8 [degF] Leyda Hendrickson Other [employer] [facility] Other 01-05-2021 12:00-0400 Body weight 99.79 kg Leyda Hendrickson Other [employer] Other 01-05-2021 12:00-0400 Respiratory rate 18 /min Leyda Hendrickson Other [employer] Other 01-05-2021 12:00-0400 SaO2% (BldA) [Mass fraction] 96 % Leyda Hendrickson Other [employer] Other Encounters Encounter Date Encounter Type Care Provider Facility Start: 08-02-2024 End: 08-02-2024 Patient encounter procedure Kartik Geraldine DO Work Phone: [facility] Work Phone: Start: 08-02-2024 End: 08-02-2024 Periodic preventive med est patient 18-39 yrs Kartik Geraldine DO Work Phone: [facility] Comment on above: Well woman exam with routine gynecological exam Start: 08-02-2024 End: 08-02-2024 Bamboo flowsheet Kartik Geraldine DO Work Phone: [facility] Start: 08-02-2024 End: 08-02-2024 Bamboo flowsheet Kartik Geraldine DO Work Phone: [facility] Start: 07-18-2024 End: 07-18-2024 ambulatory TIFFANY JACKELYN Not Available Comment on above: Anxiety Start: 07-18-2024 End: 07-18-2024 Bamboo flowsheet Tiffany Hayden DRUG ABUSE TREATMENT SPECIALIST-S Work Phone: [facility] Start: 07-18-2024 End: 07-18-2024 Bamboo flowsheet Tiffany Hayden DRUG ABUSE TREATMENT SPECIALIST-S Work Phone: [facility] Start: 07-05-2024 End: 07-05-2024 Bamboo flowsheet Odilia Durbin MD Work Phone: [facility] Start: 07-05-2024 End: 07-05-2024 Bamboo flowsheet Odilia Durbin MD Work Phone: [facility] Start: 07-05-2024 End: 07-05-2024 Office outpatient new 30 minutes Odilia Durbin MD Work Phone: [facility] Comment on above: Chronic tonsillitis (Primary Dx) Start: 07-05-2024 End: 07-05-2024 ambulatory ODILIA DURBIN Not Available Start: 06-28-2024 End: 06-28-2024 Bamboo flowsheet Jackie French COMMUNITY SERVICE REPRESENTATIVE Work Phone: [facility] Start: 06-28-2024 End: 06-29-2024 Bamboo flowsheet Jackie French COMMUNITY SERVICE REPRESENTATIVE Work Phone: [facility] Start: 06-28-2024 End: 06-29-2024 [facility] Result Encounter Generic External Data Provider [facility] External Department Unsolicited Start: 06-28-2024 End: 06-28-2024 Office outpatient visit 15 minutes Jackie French COMMUNITY SERVICE REPRESENTATIVE Work Phone: [facility] Comment on above: Exposure to STD; Vaginal discharge; Sexually transmitted disease exposure Start: 06-28-2024 End: 06-28-2024 ambulatory JACKIE GABE Not Available Start: 06-14-2024 End: 06-14-2024 Social Work Tiffany Hayden DRUG ABUSE TREATMENT SPECIALIST-S Work Phone: [facility] Comment on above: Anxiety Start: 06-14-2024 End: 06-14-2024 Bamboo flowsheet Tiffany Overton Didion DRUG ABUSE TREATMENT SPECIALIST-S Work Phone: [facility] Start: 06-14-2024 End: 06-14-2024 Bamboo flowsheet Tiffany Overton Didion DRUG ABUSE TREATMENT SPECIALIST-S Work Phone: [facility] Start: 06-13-2024 End: 06-13-2024 Bamboo flowsheet Odilia Durbin MD Work Phone: [facility] Start: 06-13-2024 End: 06-13-2024 Bamboo flowsheet Odilia Durbin MD Work Phone: [facility] Start: 05-29-2024 End: 05-29-2024 Office outpatient visit 15 minutes Alfonso A Hackenburg COMMUNITY SERVICE REPRESENTATIVE Work Phone: [facility] Comment on above: Sore throat (Primary Dx); Strep throat Start: 05-29-2024 End: 05-29-2024 ambulatory ALFONSO A HACKENBURG Not Available Start: 05-29-2024 End: 05-29-2024 Bamboo flowsheet Alfonso A Hackenburg COMMUNITY SERVICE REPRESENTATIVE Work Phone: [facility] Start: 05-29-2024 End: 05-29-2024 Bamboo flowsheet Alfonso A Hackenburg COMMUNITY SERVICE REPRESENTATIVE Work Phone: [facility] Start: 05-25-2024 End: 05-25-2024 ambulatory DELIA LUI Not Available Start: 05-25-2024 End: 05-25-2024 Bamboo flowsheet Delia CONNELL Work Phone: [facility] Start: 05-25-2024 End: 05-25-2024 Bamboo flowsheet Delia CONNELL Work Phone: [facility] Start: 05-25-2024 End: 05-25-2024 Office outpatient visit 15 minutes Delia CONNELL Work Phone: [facility] Comment on above: Vaginal discharge; STD exposure Start: 05-17-2024 End: 05-17-2024 Social Work Tiffany C Didion DRUG ABUSE TREATMENT SPECIALIST-S Work Phone: [facility] Comment on above: Anxiety Start: 05-17-2024 End: 05-17-2024 Bamboo flowsheet Tiffany Brooklynn Didion DRUG ABUSE TREATMENT SPECIALIST-S Work Phone: [facility] Start: 05-17-2024 End: 05-17-2024 Bamboo flowsheet Tiffany C Didion DRUG ABUSE TREATMENT SPECIALIST-S Work Phone: [facility] Start: 05-03-2024 End: 05-03-2024 Departed Referred Mariluz Emery APRN Work Phone: [facility] [place] Work Phone: Start: 05-03-2024 End: 05-03-2024 ambulatory Mariluz Emery [facility] Work Phone: Start: 05-03-2024 End: 05-03-2024 Patient encounter procedure [facility] [place] Work Phone: Start: 04-25-2024 End: 04-25-2024 Social Work Tiffany Overton Didion DRUG ABUSE TREATMENT SPECIALIST-S Work Phone: [facility] Comment on above: Anxiety Start: 04-25-2024 End: 04-25-2024 Bamboo flowsheet Tiffany C Didion DRUG ABUSE TREATMENT SPECIALIST-S Work Phone: [facility] Start: 04-25-2024 End: 04-25-2024 Bamboo flowsheet Tiffany C Didion DRUG ABUSE TREATMENT SPECIALIST-S Work Phone: [facility] Start: 04-05-2024 End: 04-05-2024 Social Work Tiffany Overton Didion DRUG ABUSE TREATMENT SPECIALIST-S Work Phone: [facility] Comment on above: Anxiety Start: 04-05-2024 End: 04-05-2024 Bamboo flowsheet Tiffany C Didion DRUG ABUSE TREATMENT SPECIALIST-S Work Phone: [facility] Start: 04-05-2024 End: 04-05-2024 Bamboo flowsheet Tiffany C Didion DRUG ABUSE TREATMENT SPECIALIST-S Work Phone: [facility] Start: 03-14-2024 End: 03-14-2024 Social Work Tiffany C Didion DRUG ABUSE TREATMENT SPECIALIST-S Work Phone: [facility] Comment on above: Anxiety Start: 03-14-2024 End: 03-14-2024 Bamboo flowsheet Tiffany C Didion DRUG ABUSE TREATMENT SPECIALIST-S Work Phone: [facility] Start: 03-14-2024 End: 03-14-2024 Bamboo flowsheet Tiffany C Didion DRUG ABUSE TREATMENT SPECIALIST-S Work Phone: [facility] Start: 02-23-2024 End: 02-23-2024 Social Work Tiffany C Didion DRUG ABUSE TREATMENT SPECIALIST-S Work Phone: [facility] Comment on above: Anxiety Start: 02-23-2024 End: 02-23-2024 Bamboo flowsheet Tiffany C Didion DRUG ABUSE TREATMENT SPECIALIST-S Work Phone: [facility] Start: 02-23-2024 End: 02-23-2024 Bamboo flowsheet Tiffany C Didion DRUG ABUSE TREATMENT SPECIALIST-S Work Phone: [facility] Start: 01-27-2024 End: 01-27-2024 Social Work Tiffany C Didion DRUG ABUSE TREATMENT SPECIALIST-S Work Phone: [facility] Comment on above: Anxiety Start: 01-27-2024 End: 01-27-2024 Bamboo flowsheet Tiffany C Didion DRUG ABUSE TREATMENT SPECIALIST-S Work Phone: [facility] Start: 01-27-2024 End: 01-27-2024 Bamboo flowsheet Tiffany C Didion DRUG ABUSE TREATMENT SPECIALIST-S Work Phone: [facility] Start: 01-12-2024 End: 01-12-2024 Social Work Tiffany C Didion DRUG ABUSE TREATMENT SPECIALIST-S Work Phone: [facility] Comment on above: Anxiety Start: 01-12-2024 End: 01-12-2024 Bamboo flowsheet Tiffany C Didion DRUG ABUSE TREATMENT SPECIALIST-S Work Phone: [facility] Start: 01-12-2024 End: 01-12-2024 Bamboo flowsheet Tiffany C Didion DRUG ABUSE TREATMENT SPECIALIST-S Work Phone: [facility] Start: 12-15-2023 End: 12-15-2023 Social Work Tiffany Brooklynn Didion DRUG ABUSE TREATMENT SPECIALIST-S Work Phone: [facility] Comment on above: Anxiety Start: 12-15-2023 End: 12-15-2023 Bamboo flowsheet Tiffany Overton Didion DRUG ABUSE TREATMENT SPECIALIST-S Work Phone: [facility] Start: 12-15-2023 End: 12-15-2023 Bamboo flowsheet Tiffany C Didion DRUG ABUSE TREATMENT SPECIALIST-S Work Phone: [facility] Start: 12-08-2023 End: 12-08-2023 ambulatory [facility] Work Phone: Start: 12-08-2023 End: 12-08-2023 Patient encounter procedure [facility] [place] Work Phone: Start: 12-06-2023 End: 12-06-2023 Social Work Tiffany Overton Didion DRUG ABUSE TREATMENT SPECIALIST-S Work Phone: [facility] Comment on above: Anxiety Start: 12-06-2023 End: 12-06-2023 Bamboo flowsheet Tiffany C Didion DRUG ABUSE TREATMENT SPECIALIST-S Work Phone: [facility] Start: 12-06-2023 End: 12-06-2023 Bamboo flowsheet Tiffany C Didion DRUG ABUSE TREATMENT SPECIALIST-S Work Phone: [facility] Start: 12-01-2023 End: 12-01-2023 Social Work Tiffany C Didion DRUG ABUSE TREATMENT SPECIALIST-S Work Phone: [facility] Comment on above: Anxiety Start: 12-01-2023 End: 12-01-2023 Bamboo flowsheet Tiffany C Didion DRUG ABUSE TREATMENT SPECIALIST-S Work Phone: [facility] Start: 12-01-2023 End: 12-01-2023 Bamboo flowsheet Tiffany C Didion DRUG ABUSE TREATMENT SPECIALIST-S Work Phone: [facility] Start: 11-03-2023 End: 11-03-2023 Social Work Tiffany C Didion DRUG ABUSE TREATMENT SPECIALIST-S Work Phone: [facility] Comment on above: Anxiety Start: 11-03-2023 End: 11-03-2023 Bamboo flowsheet Tiffany C Didion DRUG ABUSE TREATMENT SPECIALIST-S Work Phone: [facility] Start: 11-03-2023 End: 11-03-2023 Bamboo flowsheet Tiffany C Didion DRUG ABUSE TREATMENT SPECIALIST-S Work Phone: [facility] Start: 10-06-2023 End: 10-06-2023 ambulatory TIFFANY DIDION Not Available Start: 08-30-2023 End: 08-30-2023 ambulatory TIFFANY DIDION Not Available Start: 07-26-2023 End: 07-26-2023 ambulatory KARTIK GERALDINE Not Available Start: 04-22-2023 Telephone encounter Tiffany Saavedra DRUG ABUSE TREATMENT SPECIALIST-S Work Phone: [facility] Start: 04-21-2023 Bamboo flowsheet Tiffany Overton Didio n DRUG ABUSE TREATMENT SPECIALIST-S Work Phone: [facility] Start: 04-21-2023 Bamboo flowsheet Tiffany C Didio n DRUG ABUSE TREATMENT SPECIALIST-S Work Phone: [facility] Start: 07-20-2022 End: 07-20-2022 ambulatory ALEJANDRA NOVA . Facility: Start: 01-05-2021 (URG) Urgent Care Visit Leyda tolliver [facility] [place] Start: 01-05-2021 End: 01-05-2021 ambulatory Leyda Madhavi Other [facility] [facility] Other Procedures Date Procedure Procedure Detail Performing Clinician Start: 08-02-2024 Urnls dip stick/tabl et rgnt non-auto w/o micrscp Kartik Geraldine DO Work Phone: Start: 06-28-2024 HIV AB/P24 AG WITH REFLEX Jackie French COMMUNITY SERVICE REPRESENTATIVE Work Phone: Start: 06-28-2024 Urnls dip stick/tabl et rgnt non-auto w/o micrscp Jackie French COMMUNITY SERVICE REPRESENTATIVE Work Phone: Start: 05-29-2024 Iaadiadoo streptococ cus group a Alfonso A [facility] COMMUNITY SERVICE REPRESENTATIVE Work Phone: Start: 05-29-2024 STATUS COVID-19/FLU Pat ricia A [facility] COMMUNITY SERVICE REPRESENTATIVE Work Phone: Start: 12-08-2023 Quick Strep (POC) Start: 07-26-2023 Microscopic observat ion [Identifier] in Cervix by Cyto stain Tiffanyantionette Hayden DRUG ABUSE TREATMENT SPECIALIST-S Work Phone: Start: 07-26-2023 Cytp cerv/vag auto t hin layer prep mnl screen Kartik Geraldine DO Work Phone: Start: 07-20-2022 Microscopic observat ion [Identifier] in Cervix by Cyto stain Tiffany Distech Controlsion DRUG ABUSE TREATMENT SPECIALIST-S Work Phone: Plan of Treatment Date Care Activity Detail Author Start: 07-25-2028 Screening for malign ant neoplasm of cervix [facility] Start: 07-21-2027 Screening for malign ant neoplasm of cervix [facility] Start: 07-25-2026 Screening for malign ant neoplasm of cervix [facility] Start: 11-06-2024 Influenza vaccination Influenz a Vaccine (Season Ended) [facility] Start: 09-12-2024 End: 09-12-2024 Social Work 09/12/2024 4:00 PM EDT Social Work [facility] [address] [place] [address] Tiffany Hayden LISW-S [address] [place] [address] [facility] Start: 08-15-2024 End: 08-15-2024 Social Work 08/15/2024 4:00 PM EDT Social Work [facility] [address] [place] [address] Tiffany Hayden LISW-S [address] [place] [address] [facility] Start: 08-02-2024 End: 08-02-2024 Patient encounter procedure [facility] Comment on above: Arrived Start: 07-18-2024 End: 07-18-2024 Social Work [facility] Comment on above: Arrived Start: 07-05-2024 End: 07-05-2024 Patient encounter procedure [facility] Comment on above: Arrived Start: 06-28-2024 End: 06-28-2024 Patient encounter procedure 06/28/2024 10:00 AM EDT Office Visit [facility] [address] [place] [address] Jackie French, COMMUNITY SERVICE REPRESENTATIVE [address] [place] [address] Arrived [facility] Comment on above: Arrived Start: 06-27-2024 End: 06-27-2024 Patient encounter procedure 06/27/2024 8:10 AM EDT Office Visit [facility] [address] [facility] [address] [place] [address] Odilia Durbin MD [address] [place] [address] [facility] Start: 06-14-2024 End: 06-14-2024 Social Work 06/14/2024 4:00 PM EDT Social Work [facility] [address] [place] [phone] Tiffany Hayden LISW-S [address] [place] [address] [facility] Start: 06-13-2024 End: 06-13-2024 Patient encounter procedure 06/13/2024 10:30 AM EDT Office Visit [facility] [address] [place] [address] Odilia Durbin MD [address] [place] [address] Strep throat [facility] Comment on above: Strep throat Start: 05-29-2024 End: 05-29-2024 Patient encounter procedure [facility] Comment on above: Arrived Start: 05-25-2024 End: 05-25-2024 Patient encounter procedure 05/25/2024 2:00 PM EDT Office Visit [facility] [address] [place] [id number] Delia Lui PA [address] [place] [address] [facility] Start: 05-17-2024 End: 05-17-2024 Social Work 05/17/2024 4:00 PM EDT Social Work [facility] [address] [place] [address] Tiffany Hayden LISW-S [address] [place] [address] [facility] Start: 05-03-2024 [facility] Start: 04-25-2024 End: 04-25-2024 Social Work [facility] Comment on above: Arrived Start: 04-05-2024 End: 04-05-2024 Social Work [facility] Comment on above: Arrived Start: 03-14-2024 End: 03-14-2024 Social Work [facility] Comment on above: Arrived Start: 02-23-2024 End: 02-23-2024 Social Work 02/23/2024 4:00 PM EST Social Work [facility] [address] [place] [address] Tiffany Hayden, DRUG ABUSE TREATMENT SPECIALIST-S [address] [place] [address] [facility] Start: 02-16-2024 End: 02-16-2024 Social Work 02/16/2024 4:00 PM EST Social Work [facility] [address] [place] [address] Tiffany Hayden, DRUG ABUSE TREATMENT SPECIALIST-S [address] [place] [address] [facility] Start: 01-27-2024 End: 01-27-2024 Social Work 01/27/2024 4:00 PM EST Social Work [facility] [address] [place] [address] Tiffany Hayden, DRUG ABUSE TREATMENT SPECIALIST-S [address] [place] [address] [facility] Start: 01-12-2024 End: 01-12-2024 Social Work [facility] Comment on above: Arrived Start: 12-15-2023 End: 12-15-2023 Social Work [facility] Comment on above: Arrived Start: 12-06-2023 End: 12-06-2023 Social Work 12/06/2023 4:00 PM EDT Social Work [facility] [address] [place] [address] Tiffany Hayden, DRUG ABUSE TREATMENT SPECIALIST-S [address] [place] [address] [facility] Start: 12-01-2023 End: 12-01-2023 Social Work 12/01/2023 4:00 PM EDT Social Work [facility] [address] [place] [address] Tiffany Hayden, DRUG ABUSE TREATMENT SPECIALIST-S [address] [place] [address] [facility] Start: 11-07-2023 Influenza vaccination Influ[facility] Vacc ine (#1) [facility] Start: 07-26-2023 End: 07-26-2023 Patient encounter procedure 07/26/2023 3:00 PM EDT Office Visit [facility] [address] [place] [id number] Kartik Chandler, DO [address] [place] [address] [facility] Start: 05-25-2023 End: 05-25-2023 Social Work 05/25/2023 3:00 PM EDT Social Work [facility] [address] [place] [address] Tiffany Hayden, DRUG ABUSE TREATMENT SPECIALIST-S [address] [place] [address] [facility] Start: 04-21-2023 End: 04-21-2023 Social Work 04/21/2023 2:00 PM EST Social Work [facility] [address] [place] [phone] Tiffany Hayden, DRUG ABUSE TREATMENT SPECIALIST-S [address] [place] [address] [facility]rived [facility] Comment on above: Arrived Start: 11-06-2022 Influenza vaccination Influenza Vacc ine (#1) [facility] Start: 05-12-2021 Screening for malign ant neoplasm of cervix [facility] Start: 05-12-2012 Screening for malign ant neoplasm of cervix Pap Smear [facility] Atopobium vaginae DN A [Presence] in Vaginal fluid by PITO with probe detection [facility] Bacterial vaginosis associated bacterium 2 DNA [Presence] in Vaginal fluid by PITO with probe detection [facility] CHLAMYDIA TRACHOMATI S (GENITO/STI) CHLAMYDIA TRACHOMATIS (GENITO/STI) Lab Routine STD exposure Ordered: 05/25/2024 [facility] Comment on above: Ordered: 05/25/2024 CHLAMYDIA TRACHOMATI S (GENITO/STI) CHLAMYDIA TRACHOMATIS (GENITO/STI) Lab Routine Exposure to STD Vaginal discharge Ordered: 06/28/2024 [facility] Comment on above: Ordered: 06/28/2024 Cytology Cervical or vaginal smear or scraping study Pap Smear Pathology and Cytology Routine Well woman exam with routine gynecological exam Ordered: 08/02/2024 [facility] Work Phone: Comment on above: Ordered: 08/02/2024 Hepatitis B virus surface Ag [Presence] in Serum or Plasma by Immunoassay Hepatitis B surface antigen Lab Routine Exposure to STD Sexually transmitted disease exposure Ordered: 06/28/2024 [facility] Comment on above: Ordered: 06/28/2024 HIV-1/HIV-2 antigen/antibody combination immunoassay HIV-1 and HIV-2 antibodies Lab Routine Exposure to STD Sexually transmitted disease exposure Ordered: 06/28/2024 [facility] Comment on above: Ordered: 06/28/2024 HSV nonspecific, IgM HSV nonspec ific, IgM Lab Routine Exposure to STD Sexually transmitted disease exposure Ordered: 06/28/2024 [facility] Comment on above: Ordered: 06/28/2024 Human papilloma viru s DNA [Presence] in Unspecified specimen by Probe with amplification HPV DNA probe, amplified Microbiology Routine Well woman exam with routine gynecological exam Ordered: 08/02/2024 [facility] Comment on above: Ordered: 08/02/2024 Megasphaera sp type 1 DNA [Presence] in Vaginal fluid by PITO with probe detection [facility] Neisseria gonorrhoea e DNA [Presence] in Unspecified specimen by PITO with probe detection Neisseria gonorrhea DNA probe, direct Lab Routine STD exposure Ordered: 05/25/2024 [facility] Comment on above: Ordered: 05/25/2024 Neisseria gonorrhoea e DNA [Presence] in Unspecified specimen by PITO with probe detection Neisseria gonorrhea DNA probe, direct Lab Routine Exposure to STD Vaginal discharge Ordered: 06/28/2024 [facility] Comment on above: Ordered: 06/28/2024 Reagin Ab [Presence] in Serum by RPR RPR Lab Routine Exposure to STD Sexually transmitted disease exposure Ordered: 06/28/2024 [facility] Comment on above: Ordered: 06/28/2024 SURESWAB(R) ADVANCED VAGINITIS PLUS, TMA SURESWAB(R) ADVANCED VAGINITIS PLUS, TMA Pathology and Cytology Routine Vaginal discharge Ordered: 05/25/2024 [facility] Work Phone: Comment on above: Ordered: 05/25/2024 SURESWAB(R) ADVANCED VAGINITIS PLUS, TMA SURESWAB(R) ADVANCED VAGINITIS PLUS, TMA Pathology and Cytology Routine Exposure to STD Vaginal discharge Ordered: 06/28/2024 [facility] Work Phone: Comment on above: Ordered: 06/28/2024 Immunizations Immunization Date Immunization Notes Care Provider Jona zavala 01-14-2022 influenza virus vacc ine, unspecified formulation Tiffany CADET Work Phone: [facility] Payers Date Payer Category Payer Self-pay 2023 [facility] [id number] 2023 Unknown [id number] 2023 Unknown [id number] 2022 Unknown [id number] 1991 Unknown [id number] 2.16.840.1.421324.3.579. 2.593 1991 Unknown [id number] 2.16.840.1.876439.3.579. 2.9 1991 Unknown [id number] 2.16.840.1.408827.3.579. 2.1258 1991 Unknown [id number] 2.16.840.1.214642.3.579. 2.1258 1991 Unknown [id number] 2.16.840.1.075120.3.579. 2.1258 1991 Unknown [id number] 2.16.840.1.243662.3.579. 2.9 1991 Unknown [id number] 2.16.840.1.210068.3.579. 2.1258 1991 Unknown [id number] 2.16.840.1.171033.3.579. 2.9 1991 Unknown [id number] 2.16.840.1.233838.3.579. 2.1258 1991 Unknown [id number] 2.16.840.1.186230.3.579. 2.1258 1991 Unknown [id number] 2.16.840.1.518443.3.579. 2.1258 1991 Unknown [id number] 2.16.840.1.283468.3.579. 2.1258 1991 Unknown [id number] 2.16.840.1.818722.3.579. 2.9 1991 Unknown [id number] 2.16.840.1.137643.3.579. 2.1259 1991 Unknown [id number] 2.16.840.1.891613.3.579. 2.9 1991 Unknown [id number] 2.16.840.1.826877.3.579. 2.9 1991 Unknown [id number] 2.16.840.1.928350.3.579. 2.9 1991 Unknown [id number] 2.16.840.1.406333.3.579. 2.9 1991 Unknown [id number] 2.16.840.1.788177.3.579. 2.9 1991 Unknown [id number] 2.16.840.1.750997.3.579. 2.9 1991 Unknown [id number] 2.16.840.1.327566.3.579. 2.9 1959 Unknown [id number] Unknown [id number] 2.16.840.1.714650.19 Unknown [id number] 2.16.840.1.655159.3.579. 2.531 Social History Date Type Detail Facility Unknown if ever smoked [facility] Other Start: 10-07-2022 End: 05-29-2024 Sex Assigned At [facility] Start: 10-07-2022 End: 05-29-2024 Tobacco smoking status AZIS Never smoked tobacco [facility] Start: 03-16-2023 End: 08-02-2024 Alcohol intake Current drinker of alcohol (finding) [facility] Start: 10-07-2022 End: 05-29-2024 History of Social function [facility] Start: 10-07-2022 Alcohol Comment caffeine: soda 2x a week [facility] Start: 1990 Sex Assigned At Female [facility] Start: 09-20-2022 Gender identity Identifies as female gender (finding) [facility] Start: 09-20-2022 Sexual orientation Heterosexual (finding) [facility] Start: 05-03-2024 End: 05-04-2024 Sex Female (finding) [facility] Start: 05-29-2024 Tobacco use and exposure Smokeless tobacco non-user [facility] Clinical Notes 01-05-2021 to 08-02-2024 BECKI Jordan - 08/02/2024 3:00 PM Mariela Durbin MD - 07/05/2024 8:10 AM EDTJackie French NP - 06/28/2024 10:00 AM EDObed Neumann NP - 05/29/2024 4:00 PM EDT Note Date & Type Note Facility 08-02-2024 History of Presen t illness Narrative Reason for Appointment: Patient ID: Kandis Ambriz is a 34 y.o. female who presents for Well Women Visit Patient presents today for Annual Exam. MEDICATIONS Current Outpatient Medications Medication Instructions Aky 0.25-35 MG-MCG tablet 1 tablet, Oral, Daily sertraline (ZOLOFT) 100 mg, Oral, Daily ALLERGIES Allergies Allergen Reactions Azithromycin Other Reaction(s): Abdominal Pain, GI disturbance N/V, and diarrhea PROBLEMS Active Ambulatory Problems Diagnosis Date Noted Amenorrhea 07/05/2024 Anxiety disorder 07/05/2024 Current severe episode of major depressive disorder without psychotic features without prior episode ([facility]) 07/05/2024 Depressive disorder ([facility]) 07/05/2024 GBS bacteriuria 10/21/2020 Hyperinsulinemia 07/05/2024 Irregular [...] Physical Exam Constitutional: Appearance: Normal appearance. Genitourinary: Right Adnexa: not tender and no mass [...] nursing note reviewed. Exam conducted with a racing driver present. Vitals: Estimated body mass index is 36.81 kg/m as calculated from the following: Height as of 25: 5' 8 . Weight as of this [...] Documented by BECKI Jordan on behalf of: Kartik Chandler DO documented in this encounter [facility] 07-05-2024 History of Presen t illness Narrative Subjective Patient ID: Kandis Ambriz is a 34 y.o. female who presents for Sore Throat Strep x 3 this winter. Usually once per year. Was last ill 5 weeks ago. Review of Systems All other systems reviewed and are negative. Family History Problem Relation Name Age of Onset Hypertension Mother Yokasta Kidney failure Father Eleuterio Diabetes Father Eleuterio Hypertension Father Eleuterio Heart failure Father Eleuterio Hypertension Paternal Grandmother Gransoha Diabetes Paternal Grandmother So Drug abuse Neg Hx Alcohol abuse Neg Hx Mental illness Neg Hx Active Ambulatory Problems Diagnosis Date Noted Amenorrhea 07/05/2024 Anxiety disorder 07/05/2024 Current severe episode of major depressive disorder without psychotic features without prior episode (CMS/HCC) 07/05/2024 Depressive disorder (CMS/HCC) 07/05/2024 GBS bacteriuria 10/21/2020 Hyperinsulinemia 07/05/2024 Irregular periods 07/05/2024 Obesity (BMI 30.0-34.9) 07/05/2024 Stress at home 07/05/2024 Resolved Ambulatory Problems Diagnosis Date Noted No Resolved Ambulatory Problems Past Medical History: Diagnosis Date GERD (gastroesophageal reflux disease) IBS (irritable bowel syndrome) Past Surgical History: Procedure Laterality Date ABDOMINAL SURGERY February [address] CT ANGIOGRAM HEART CORONARY 02/15/2021 CT ANGIOGRAM TAVR 02/15/2021 GALLBLADDER SURGERY 02/2021 MYRINGOTOMY Allergies Allergen Reactions Azithromycin Other Reaction(s): Abdominal Pain, GI disturbance N/V, and diarrhea Current Outpatient Medications on File Prior to Visit Medication Sig Dispense Refill metroNIDAZOLE (Flagyl) 500 MG tablet Take 1 tablet (500 mg) by mouth in the morning and 1 tablet (500 mg) before bedtime. Do all this for 7 days. Do not drink alcohol while taking this medication. 14 tablet 0 norgestimate-ethinyl estradiol (Ortho-Cyclen) 0.25-35 MG-MCG tablet Take 1 tablet by mouth Daily 28 tablet 12 sertraline (Zoloft) 100 MG tablet Take 1 tablet (100 mg) by mouth Daily 30 tablet 11 No current facility-administered medications on file prior to visit. Objective Last Recorded Vitals Vitals: 07/05/24 0759 BP: 107/76 Pulse: 82 ENT Physical Exam Constitutional Appearance: patient appears well-developed, well-nourished and well-groomed, Head and Face Appearance: head appears normal and face appears atraumatic; Ear Ear Canals: right ear canal normal; left ear canal normal; Tympanic Membranes: right tympanic membrane normal; left tympanic membrane normal; Nose External Nose: nares patent bilaterally; external nose normal; Internal Nose: septum normal; Oral Cavity/Oropharynx Tongue: normal; Oral mucosa: normal; Hard palate: normal; Soft palate: normal; Tonsils: normal; Neck Neck: neck normal; neck palpation normal; Thyroid: thyroid normal; Respiratory Inspection: breathing unlabored; normal breathing rate; Auscultation: breath sounds are clear; Cardiovascular Inspection: extremities are warm and well perfused; no peripheral edema present; Auscultation: regular rate and rhythm; Assessment/Plan Diagnoses and all orders for this visit: Chronic tonsillitis Aqt this point I would not tx recurrent infections. If she has another infection in the next few mo recommend one mo course of augmentin. Would not consider surgery unless 7 infections in one year or 5/yr x 2 years. documented in this encounter [facility] 06-28-2024 History of Presen t illness Narrative Reason for Appointment: Patient ID: Kandis Ambriz is a 34 y.o. female who presents for STI Screening Patient presents today for STD Check. MEDICATIONS Current Outpatient Medications Medication Instructions norgestimate-ethinyl estradiol (Ortho-Cyclen) 0.25-35 MG-MCG tablet 1 tablet, Oral, Daily sertraline (ZOLOFT) 100 mg, Oral, Daily ALLERGIES Allergies Allergen Reactions Azithromycin Other Reaction(s): Abdominal Pain, GI disturbance N/V, and diarrhea PROBLEMS Active Ambulatory Problems Diagnosis Date Noted No Active Ambulatory Problems Resolved Ambulatory Problems Diagnosis Date Noted No [...] Relation Name Age of Onset Hypertension Mother Kidney failure Father Diabetes Father Hypertension Father Hypertension Paternal Grandmother Diabetes Paternal Grandmother Drug abuse Neg Hx Alcohol abuse Neg Hx Mental illness Neg Hx SURGICAL HISTORY Past Surgical History: Procedure Laterality Date CT ANGIOGRAM HEART CORONARY 02/15/2021 CT ANGIOGRAM TAVR 02/15/2021 GALLBLADDER SURGERY 02/2021 MYRINGOTOMY REVIEW OF SYSTEMS Review of Systems: Review of Systems Constitutional: Negative. HENT: Negative. Eyes: Negative. Respiratory: Negative. Cardiovascular: Negative. Gastrointestinal: Negative. Genitourinary: Negative. Musculoskeletal: Negative. Skin: Negative. Neurological: Negative. All other systems reviewed and are negative. Hematological: Negative. Endocrine: Negative. Allergic/Immunologic: Negative. OBJECTIVE Objective: Physical Exam Constitutional: Appearance: Normal appearance. She is well-developed. Cardiovascular: Rate and Rhythm: Normal rate and regular rhythm. Pulmonary: Effort: Pulmonary effort is normal. Breath sounds: Normal breath sounds. Abdominal: General: Bowel sounds are normal. There is no distension. Palpations: Abdomen is soft. Tenderness: There is no abdominal tenderness. There is no guarding or rebound. Musculoskeletal: General: No swelling. Normal range of motion. Right lower leg: No edema. Left lower leg: No edema. Neurological: Mental Status: She is alert and oriented to person, place, and time. Skin: General: Skin is warm and dry. Psychiatric: Mood and Affect: Mood normal. Behavior: Behavior normal. Vitals and nursing note reviewed. Exam conducted with a racing driver present. Vitals: Estimated body mass index is 35.48 kg/m as calculated from the following: Height as of 06/13/24: 5' 8.5 . Weight as of this encounter: 236 lb 12.8 oz. BP: 110/70 Patient's last menstrual period was 06/01/2024. ASSESSMENT & PLAN ICD-10-CM 1. Exposure to STD Z20.2 SURESWAB(R) ADVANCED VAGINITIS PLUS, TMA CHLAMYDIA TRACHOMATIS (GENITO/STI) Neisseria gonorrhea DNA probe, direct POCT , urine manually resulted POCT urinalysis dipstick manually resulted HIV-1 and HIV-2 antibodies Hepatitis B surface antigen RPR HSV nonspecific, IgM 2. Vaginal discharge N89.8 SURESWAB(R) ADVANCED VAGINITIS PLUS, TMA CHLAMYDIA TRACHOMATIS (GENITO/STI) Neisseria gonorrhea DNA probe, direct POCT , urine manually resulted POCT urinalysis dipstick manually resulted 3. Sexually transmitted disease exposure Z20.2 HIV-1 and HIV-2 antibodies Hepatitis B surface antigen RPR HSV nonspecific, IgM Patient presents today for Cultures to be obtained. Cultures were obtained without difficulty. Patient has had exposure to STD. Patient had a partner who tested positive for Chlamydia and HSV. Patient asking for additional labs to be obtained, these labs ordered at this time. Patient is advised of IgM and IgG difference. Documented by Germania Rhoades LPN on behalf of: Jackie French NP documented in this encounter [facility] 05-29-2024 History of Presen t illness Narrative Images from the original note were not included. Kandis Ambriz is a 34 y.o. female presents with chief complaint of Sore Throat HPI: HPI History of Present Illness The patient presents for evaluation of a sore throat. She reports awakening with a sore throat, accompanied by chills and fever. She has a history of recurrent strep infections, typically experiencing one episode annually. However, this winter, she has had 3 to 4 episodes, which is unusual for her. She was previously advised to consult an ENT specialist due to the frequency of her strep infections but was unable to do so due to work commitments. She has sought treatment at an urgent care facility on one occasion and participated in a video conference for another episode. ALLERGIES The patient is allergic to ZITHROMAX. SUBJECTIVE: MEDICATIONS: Current Outpatient Medications Medication Instructions norgestimate-ethinyl estradiol (Ortho-Cyclen) 0.25-35 MG-MCG tablet 1 tablet, Oral, Daily sertraline (ZOLOFT) 100 mg, Oral, Daily REVIEW OF SYMPTOMS: Review of Systems Constitutional: Positive for chills, fatigue and fever. HENT: Positive for sore throat. Negative for congestion, rhinorrhea and sinus pain. Respiratory: Negative for cough, shortness of breath and wheezing. Cardiovascular: Negative for chest pain, palpitations and leg swelling. Gastrointestinal: Negative for abdominal pain. OBJECTIVE: Visit Vitals BP 124/80 Pulse 103 Temp 100.1 F (Tympanic) Ht 5' 8.5 Wt 237 lb 9.6 oz SpO2 96% BMI 35.60 kg/m OB Status Having periods Smoking Status Never BSA 2.28 m Physical Exam Vitals and nursing note reviewed. Constitutional: Appearance: Normal appearance. HENT: Head: Normocephalic and atraumatic. Right Ear: Tympanic membrane normal. Left Ear: Tympanic membrane normal. Nose: Nose normal. Mouth/Throat: Pharynx: Posterior oropharyngeal erythema present. Tonsils: Tonsillar exudate present. 3+ on the right. 3+ on the left. Eyes: Extraocular Movements: Extraocular movements intact. Conjunctiva/sclera: Conjunctivae normal. Pupils: Pupils are equal, round, and reactive to light. Cardiovascular: Rate and Rhythm: Normal rate and regular rhythm. Pulmonary: Effort: Pulmonary effort is normal. Breath sounds: Normal breath sounds. Musculoskeletal: Cervical back: Normal range of motion and neck supple. Neurological: Mental Status: She is alert. ASSESSMENT AND PLAN: Assessment/Plan Diagnoses and all orders for this visit: Sore throat - STATUS COVID-19/FLU - POCT rapid strep A manually resulted Strep throat - Ambulatory referral to ENT; Future - amoxicillin (Amoxil) 500 MG capsule; Take 1 capsule (500 mg) by mouth in the morning and 1 capsule (500 mg) before bedtime. Do all this for 10 days. Assessment & Plan 1. Pharyngitis. She reports waking up with a sore throat, chills, and fever. Given her positive strep test, amoxicillin will be prescribed. A referral to an ENT specialist will be made for further evaluation and potential management of her recurrent strep infections. The prescription for amoxicillin will be sent to [facility] pharmacy. documented in this encounter [facility] 05-25-2024 History of Presen t illness Narrative Reason for Appointment: Patient ID: Kandis Ambriz is a 34 y.o. female who presents for STI Screening Patient presents today for Acute Visit. MEDICATIONS Current Outpatient Medications Medication Instructions norgestimate-ethinyl estradiol (Ortho-Cyclen) 0.25-35 MG-MCG tablet 1 tablet, Oral, Daily sertraline (ZOLOFT) 100 mg, Oral, Daily ALLERGIES Allergies Allergen Reactions Azithromycin Other Reaction(s): Abdominal Pain, GI disturbance N/V, and diarrhea PROBLEMS Active Ambulatory Problems Diagnosis Date Noted No Active Ambulatory Problems Resolved Ambulatory Problems Diagnosis Date Noted No Resolved Ambulatory Problems Past Medical History: Diagnosis Date GERD (gastroesophageal reflux disease) IBS (irritable bowel syndrome) HISTORY PAST MEDICAL HISTORY SOCIAL HISTORY Past Medical History: Diagnosis Date GERD (gastroesophageal reflux disease) IBS (irritable bowel syndrome) Social History Tobacco Use Smoking status: Never Smokeless tobacco: Not on file Substance Use Topics Alcohol use: Yes Alcohol/week: 1.0 - 2.0 standard drink of alcohol Types: 1 - 2 Standard drinks or equivalent per week Comment: caffeine: soda 2x a week Drug use: Not on file FAMILY HISTORY Family History Problem Relation Name Age of Onset Hypertension Mother Kidney failure Father Diabetes Father Hypertension Father Hypertension Paternal Grandmother Diabetes Paternal Grandmother Drug abuse Neg Hx Alcohol abuse Neg Hx Mental illness Neg Hx SURGICAL HISTORY Past Surgical History: Procedure Laterality Date CT ANGIOGRAM HEART CORONARY 02/15/2021 CT ANGIOGRAM TAVR 02/15/2021 GALLBLADDER SURGERY 02/2021 MYRINGOTOMY REVIEW OF SYSTEMS Review of Systems: Review of Systems Constitutional: Negative. HENT: Negative. Eyes: Negative. Respiratory: Negative. Cardiovascular: Negative. Gastrointestinal: Negative. Genitourinary: Negative. Musculoskeletal: Negative. Skin: Negative. Neurological: Negative. All other systems reviewed and are negative. Hematological: Negative. Endocrine: Negative. Allergic/Immunologic: Negative. OBJECTIVE Objective: Physical Exam Constitutional: Appearance: Normal appearance. She is normal weight. HENT: Head: Normocephalic. Cardiovascular: Rate and Rhythm: Normal rate. Pulses: Normal pulses. Pulmonary: Effort: Pulmonary effort is normal. Breath sounds: Normal breath sounds. Abdominal: Palpations: Abdomen is soft. Musculoskeletal: General: Normal range of motion. Neurological: General: No focal deficit present. Mental Status: She is alert and oriented to person, place, and time. Psychiatric: Mood and Affect: Mood normal. Behavior: Behavior normal. Thought Content: Thought content normal. Judgment: Judgment normal. Vitals and nursing note reviewed. Vitals: Estimated body mass index is 36.08 kg/m as calculated from the following: Height as of 07/22/22: 5' 8.5 . Weight as of this encounter: 240 lb 12.8 oz. BP: 118/74 No LMP recorded. ASSESSMENT & PLAN ICD-10-CM 1. Vaginal discharge N89.8 SURESWAB(R) ADVANCED VAGINITIS PLUS, TMA 2. STD exposure Z20.2 CHLAMYDIA TRACHOMATIS (GENITO/STI) Neisseria gonorrhea DNA probe, direct Patient recently treated for sti from urgent care. States had rocephin and one week of antibiotics. She is here for EDA. Cultures obtained with out difficulty Documented by BECKI Jordan on behalf of: BECKI Jordan documented in this encounter [facility] 05-03-2024 Evaluation note Diagnosis Onset Date Resolution Possible exposure to STI acute May 03, 025 6:22pm [facility] Work Phone: [phone] 505-695609-30-2024 History of Present illness Narrative* HOAD [place] - 12/06/2023 4:00 PM EDT SW met with pt at this time in the office. SW allowed time and space for pt to verbalize and process her thoughts and feelings as needed. Pt talked about her current struggles and challenges with multiple life stressors affecting her right now. Continue to work on staying focused in the present moment and narrowing her focus to what she can control and take care of, while finding enjoyment in herday. Identified ways to simplify pt's life and her thought patterns to help with over thinking. Pt has good friends for support, but pt feels like she has no family support and that complicates her grief as she believes her dad would be there for her even if no one else was. SW provided active listening, support and encouragement, while reinforcing effective coping skills. Mental Health Status Exam Appearance: Well groomed, appropriate eye contact. Behavior: cooperative Affect: Congruent with mood and topic of conversation Hallucination: no Judgement: Appropriate to age Knowledge: WNL Language: Appropriate to age Orientation: Appropriate to age Speech: Coherent and Regular rate, rhythm, volume and articulation Thought Associations: No loosening of associations Thought Process: Abstract reasoning appropriate to age Thought Content: Within normal limits Sleep: no sleep issues reported Perception: No perceptual abnormalities noted Delusions: none noted or reported Insight: Age appropriate Mood: within normal limits Suicidality: none Homicide: No significant risk factors identified on screening Treatment Plan: ANXIETY Goal #1 To increase skills to cope with and manage symptoms of anxiety. Objective #1 Learn to identify the cues, symptoms, and triggers associated with anxiety. Objective #2 Learn how irrational thoughts increase anxiety and develop 3 skills for managing thoughts/triggers. Objective #3 Identify current and/or new coping skills as needed and rehearse these skills 3x/week. Objective #4 Learn 3 relaxation skills to manage anxiety and rehearse skills 3x/week. Objective #5 Increase awareness of the relationship between triggers, feelings, thoughts, and actions or behaviors. documented in this [facility]02-15-2024 Telephone encounter Note* Telephone Encounter - Snow Lazo - 04/22/2023 3:17 PM EST LVM for patient, called them to let them know there was a payment mistakenly made on their account from another patient, it is now being refunded back to them. If they see that on their statement it was an error and has now been resolved. [facility] [id number] Miscellaneous Notes* Telephone Encounter - Snow Lazo - 04/22/2023 3:17 PM EST LVM for patient, called them to let them know there was a payment mistakenly made on their account from another patient, it is now being refunded back to them. If they see that on their statement it was an error and has now been resolved. documented in this [facility]10-31-2021 Evaluation note* Encounter Date Diagnosis Assessment Notes Treatment Notes Treatment Clinical Notes Dec, Contact with and (suspected) exposure to other viral communicable diseases (ICD-10 - Z20.828) Dec, COVID-19 (ICD-10 - U07.1) Dec, Other Additional time spent conducting pre-visit phone call, screening for symptoms, instructions on social distancing, application and removal of PPE, and cleaning of examination room, equipment and supplies was preformed. Patient education given for testing methodology and results. Patient care instructions given in writting by [facility] document. [employer] Other Evaluation note* Diagnosis Onset Date Resolution Status Sore throat noneactive [facility] Work Phone: Evaluation note* Diagnosis Anxiety Anxiety state, unspecified [facility] Diagnosis Anxiety Anxiety state, unspecified [facility] Diagnosis Anxiety Anxiety state, unspecified [facility] Diagnosis Anxiety Anxiety state, unspecified [facility]* Diagnosis Onset Date Resolution Status Admit Date Possible exposure to STI acute May 03, 2024 6:22pm [facility] Work Phone: Evaluation note* Diagnosis Vaginal discharge Leukorrhea, not specified as infective STD exposure [facility]* Diagnosis Sore throat- Primary Acute pharyngitis Strep throat Streptococcal sore throat [facility]* Diagnosis Exposure to STD Vaginal discharge Leukorrhea, not specified as infective Sexually transmitted disease exposure Contact with or exposure to venereal diseases [facility]* Diagnosis Chronic tonsillitis- Primary [facility]* Diagnosis Anxiety Anxiety state, unspecified [facility]* Diagnosis Well woman exam with routine gynecological exam Routine gynecological examination [facility] Narrative - Reported* Type Description Date Surgical History PE tubes [employer] Other Summary Purpose Family History Relationship Condition Age at Onset Recorded Date/T rommel father Hypertension Unknown Heart disease Unknown Diabetes mellitus Unknown Unknown mother Hypertension Unknown Advance Directives Advance Directive Response Recorded Date/ Time Advance Directives No December 08, 2023 11:36am Advance Directive Response Recorded Date/ Time Advance Directives No December 08, 2023 10:36am Chief Complaint and Reason for Visit Chief Complaint Cough, fever Reason for Visit Sore throat Chief Complaint Admit Date STD test May 03, 2024 6:22pm Reason for Visit Admit Date Possible exposure to STI May 03, 2024 6:22pm Additional Source Comments REASON FOR VISIT (unrecogniz ed section and content) Reason Comments Follow-up Specialty Diagnoses / Procedures Referred By Contac t Referred To Contact Behavioral Health Diagnoses Counseling. Procedures Counseling. [facility] [address] [place] [address] [facility] [address] [place] [address] Referral ID Status Reason Start Date Expiration Date Visits Re quested Visits Authorized [id number] Closed 10/06/2023 04/03/2024 1 1 Specialty Diagnoses / Procedures Referred By Contac t Referred To Contact Behavioral Health Diagnoses Generalized anxiety disorder (CMS/HCC) Procedures LA PSYCHOTHERAPY W/PATIENT 60 MINUTES [facility] [address] [place] [address] Phone: tel: fax: [facility] [address] [place] [address] Phone: tel: fax: Referral ID Status Reason Start Date Expiration Date Visits Re quested Visits Authorized [id number] Closed 02/16/2024 08/14/2024 1 1 Reason Comments STI Screening Reason Comments Sore Throat Reason Comments Sore Throat Specialty Diagnoses / Procedures Referred By Contac t Referred To Contact Otolaryngology Diagnoses Strep throat Procedures LA OFFICE/OUTPATIENT NEW HIGH MDM 60 MINUTES Alfonso Neumann NP [address] [place] [address] Phone: tel: fax: Odilia Durbin MD [address] [address] Phone: tel: fax: Referral ID Status Reason Start Date Expiration Date V isits Requested Visits Authorized [id number] Closed Specialty Services Required 05/29/2024 11/25/2024 1 1 Reason Comments Well Women Visit INFORMATION SOURCE (unrecogn ized section and content) DATE CREATED AUTHOR 07/21/2022 [facility] DATE CREATED AUTHOR AUTHOR'S ORGANIZ ATION 05/08/2024 [facility] DATE CREATED AUTHOR AUTHOR'S ORGANIZ ATION 07/19/2024 [facility] dical Specialists [employer] Care Teams (unrecognized sec tion and content) High Reach Operator Relationship Specialty Start Date End Date Rubina Varela MD [address] [place] [address] PCP - General Family Medicine 07/22/22 Lizzeth Nicolas NP [address] [place] [address] Nurse Practitioner Family Medicine 07/22/22 High Reach Operator Relationship Specialty Start Date End Date Rubina Varela MD [address] [facility] [place] [address] PCP - General Family Medicine 07/22/22 Lizzeth Nicolas NP [address] [facility] [place] [address] Nurse Practitioner Family Medicine 07/22/22 Team Status: Active Member Role Status Dates NON STAFF Primary Care Provider Active Team Status: Inactive Member Role Status Dates Mariluz Emery APRN Attending Provider Active S tart: December 08, 2023 End: December 08, 2023 NON STAFF Primary Care Provider Active Start: December 08, 2023 End: December 08, 2023 High Reach Operator Relationship Specialty Start Date End Date Rubina Varela MD [address] [place] [address] PCP - General Family Medicine 07/22/22 Lizzeth Nicolas NP [address] [place] [address] Nurse Practitioner Family Medicine 07/22/22 High Reach Operator Relationship Specialty Start Date End Date Rubina Varela MD [address] [place] [address] PCP - General Family Medicine 07/22/22 Lizzeth Nicolas NP [address] [place] [address] Nurse Practitioner Family Medicine 07/22/22 High Reach Operator Relationship Specialty Start Date End Date Rubina Varela MD [address] [place] [address] PCP - General Family Medicine 07/22/22 Lizzeth Nicolas NP [address] [place] [address] Nurse Practitioner Family Medicine 07/22/22 High Reach Operator Relationship Specialty Start Date End Date Rubina Varela MD [address] [place] [address] PCP - General Family Medicine 07/22/22 Lizzeth Nicolas NP [address] [place] [address] Nurse Practitioner Family Medicine 07/22/22 High Reach Operator Relationship Specialty Start Date End Date Rubina Varela MD [address] [place] [address] PCP - General Family Medicine 07/22/22 Lizzeth Nicolas NP [address] [place] [address] Nurse Practitioner Family Medicine 07/22/22 High Reach Operator Relationship Specialty Start Date End Date Rubina Varela MD [address] [facility] [place] [address] PCP - General Family Medicine 07/22/22 Lizzeth Nicolas NP [address] [facility] [place] [address] Nurse Practitioner Family Medicine 07/22/22 Tiffany Hayden LISW-S [address] [place] [address] [employer] Vice President Behavioral Health 03/15/24 High Reach Operator Relationship Specialty Start Date End Date Rubina Varela MD [address] [facility] [place] [address] PCP - General Family Medicine 07/22/22 Lizzeth Nicolas NP [address] [place] [address] Nurse Practitioner Family Medicine 07/22/22 Tiffany Hayden LISW-S [address] [place] [address] [employer] Vice President Behavioral Health 03/15/24 High Reach Operator Relationship Specialty Start Date End Date Rubina Varela MD [address] [place] [address] PCP - General Family Medicine 07/22/22 Lizzeth Nicolas NP [address] [place] [address] Nurse Practitioner Family Medicine 07/22/22 Tiffany Hayden LISW-S [address] [place] [address] [employer] Vice President Behavioral Health 03/15/24 Team Status: Inactive Member Role Status Dates NON STAFF Primary Care Provider Active Start: May 03, 2024 End: May 03, 2024 Mariluz Emery APRN Attending Provider Active S tart: May 03, 2024 End: May 03, 2024 Team Status: Inactive Member Role Status Dates Mariluz Emery APRN Attending Provider Active S tart: May 03, 2024 End: May 03, 2024 High Reach Operator Relationship Specialty Start Date End Date Rubina Varela MD [address] [place] [address] PCP - General Family Medicine 07/22/22 Lizzeth Nicolas NP [address] [facility] [place] [address] Nurse Practitioner Family Medicine 07/22/22 Tiffany Hayden LISW-S [address] [place] [address] [employer] Vice President Behavioral Health 03/15/24 High Reach Operator Relationship Specialty Start Date End Date Rubina Varela MD [address] [place] [address] PCP - General Family Medicine 07/22/22 Lizzeth Nicolas NP [address] [place] [address] Nurse Practitioner Family Medicine 07/22/22 Tiffany Hayden LISW-S [address] [place] [address] [employer] Vice President Behavioral Health 03/15/24 High Reach Operator Relationship Specialty Start Date End Date Rubina Varela MD [address] [place] [address] PCP - General Family Medicine 07/22/22 Lizzeth Nicolas NP [address] [place] [address] Nurse Practitioner Family Medicine 07/22/22 Tiffany Hayden LISW-S [address] [place] [address] [employer] Vice President Behavioral Health 03/15/24 High Reach Operator Relationship Specialty Start Date End Date Rubina Varela MD [address] [place] [address] PCP - General Family Medicine 07/22/22 Lizzeth Nicolas NP [address] [place] [address] Nurse Practitioner Family Medicine 07/22/22 Tiffany Hayden LISW-S [address] [place] [address] [employer] Vice President Behavioral Health 03/15/24 High Reach Operator Relationship Specialty Start Date End Date Rubina Varela MD [address] [place] [address] PCP - General Family Medicine 07/22/22 Lizzeth Nicolas NP [address] [place] [address] Nurse Practitioner Family Medicine 07/22/22 Tiffany Hayden LISW-S [address] [place] [address] [employer] Vice President Behavioral Health 03/15/24 High Reach Operator Relationship Specialty Start Date End Date Rubina Varela MD [address] [facility] [place] [address] PCP - General Family Medicine 07/22/22 Lizzeth Nicolas NP [address] [facility] [place] [address] Nurse Practitioner Family Medicine 07/22/22 Tiffany Hayden LISW-S [address] [place] [address] [employer] Vice President Behavioral Health 03/15/24 High Reach Operator Relationship Specialty Start Date End Date Rubina Varela MD [address] [facility] [place] [address] PCP - General Family Medicine 07/22/22 Lizzeth Nicolas NP [address] [place] [address] Nurse Practitioner Family Medicine 07/22/22 Tiffany Hayden LISW-S [address] [place] [address] [employer] Vice President Behavioral Health 03/15/24 High Reach Operator Relationship Specialty Start Date End Date Rubina Varela MD [address] [place] [address] PCP - General Family Medicine 07/22/22 Lizzeth Nicolas NP [address] [place] [address] Nurse Practitioner Family Medicine 07/22/22 Tiffany Hayden LISW-S [address] [place] [address] [employer] Vice President Behavioral Health 03/15/24 High Reach Operator Relationship Specialty Start Date End Date Rubina Varela MD [address] [place] [id number] PCP - General Family Medicine 07/22/22 Lizzeth Nicolas NP [address] [place] [address] Nurse Practitioner Family Medicine 07/22/22 Tiffany Hayden LISW-S [address] [place] [address] [employer] Vice President Behavioral Health 03/15/24 High Reach Operator Relationship Specialty Start Date End Date Rubina Varela MD [address] [place] [address] PCP - General Family Medicine 07/22/22 Lizzeth Nicolas NP [address] [place] [address] Nurse Practitioner Family Medicine 07/22/22 Tiffany Hayden LISW-S [address] [place] [address] [employer] Vice President Behavioral Health 03/15/24 High Reach Operator Relationship Specialty Start Date End Date Rubina Varela MD [address] [place] [address] PCP - General Family Medicine 07/22/22 Lizzeth Nicolas NP [address] [place] [address] Nurse Practitioner Family Medicine 07/22/22 Tiffany Hayden LISW-S [address] [place] [address] [employer] Vice President Behavioral Health 03/15/24 High Reach Operator Relationship Specialty Start Date End Date Rubina Varela MD [address] [place] [address] PCP - General Family Medicine 07/22/22 Lizzeth Nicolas NP [address] [place] [address] Nurse Practitioner Family Medicine 07/22/22 Tiffany Hayden LISW-S [address] [place] [address] [employer] Vice President Behavioral Health 03/15/24 High Reach Operator Relationship Specialty Start Date End Date Rubina Varela MD [address] [place] [address] PCP - General Family Medicine 07/22/22 Lizzeth Nicolas NP [address] [place] [address] Nurse Practitioner Family Medicine 07/22/22 Tiffany Hayden LISW-S [address] [place] [address] [employer] Vice President Behavioral Health 03/15/24 Goals (unrecognized section and content) Goals may be documented in a n alternate section FOR RECORDS PERTAINING TO PATIENTS WHO ARE OR HAVE BEEN ENROLLED IN A CHEMICAL DEPENDENCY/SUBSTANCEABUSE PROGRAM, SOME INFORMATION MAY BE OMITTED. This clinical summary was aggregated from multiple sources. Caution should be exercised in using it in the provision of clinical care. This summary normalizes information from multiple sources, and as a consequence, information in this document may materially change the coding, format and clinical context of patient data. In addition, data may be omitted in some cases. CLINICAL DECISIONS SHOULD BE BASED ON THE PRIMARY CLINICAL RECORDS. [employer] provides no warranty or guarantee of the accuracy or completeness of information in this document.
== END 2024-08-02 20:12 | disposition home or self-care (01) ==
LOC: LAB 20:11
PROVIDERS: PCP Family Medicine; Visit Provider Obstetrics & Gynecology
DX: Z01.419 Encounter for gynecological examination (general) (routine) without abnormal findings (principal)
CPT/HCPCS: 87624; 88175